=== PATIENT | male | born 1940 | race Caucasian/White ===

== ENCOUNTER → 2017-11-17 10:31 | Outpatient (CLI) | payer MEDICARE, OTHER, SELFPAY ==
--- NOTE | 2017-11-17 | DI.ECHO.S_ITS ---
[facility]---------+ [facility] +---------+ : : [address] [place] : : : : [id number] : : : : Phone: [phone]---------+ Echocardiogram Report + + :Name: TRUNG TINOCO Study Date: 11/17/2017 Height: 70 in : :[facility] Weight: 180 lb : : Gender: Male BSA: 2.0 m2 : :: 1940 Age: 77 yrs BP: 100/70 mmHg: :Reason For Study: Pulmonary - Hypertension : :Ordering Physician: Anthony : :Kayleigh Performed By: Rachel Collier : + + Interpretation Summary The left ventricle is borderline dilated. The ejection fraction is estimated to be 55-60%. There is a moderate dyssynchronous contraction pattern due to the paced rhythm. Paradoxical septal motion is consistent with right ventricular volume overload. Assessment of diastolic parameters indicates a relaxation abnormality of the left ventricle, consistent with normal filling pressures. The right ventricle is moderate to severely dilated. There is a pacemaker lead in the right ventricle. Right ventricular systolic function is moderate to severely reduced. The right atrium is moderate to severely dilated. The PFO is not appreciated by color Doppler on today's exam. There is a bioprosthetic aortic valve. The prosthetic aortic valve function is normal. There is moderate to severe tricuspid regurgitation. The right ventricular systolic pressure is estimated at 55 mmHg assuming a right atrial pressure of 15 mm Hg. The PAP is estimated at 55/25. The IVC is dilated (diameter is greater than 2.1 cm) and it collapses less than 50% with a sniff. This suggests a high right atrial pressure of 15 mm Hg. There is a moderate left-sided pleural effusion. No other echocardiographic abnormalities seen. Since the prior exam the RV size and function has significantly improved. The left pleural effusion is also much less. Procedure: A two-dimensional transthoracic echocardiogram with color flow and Doppler was performed. The study quality was technically adequate. Comparison is made with the echocardiogram of 09/28/2017. The patient was in normal sinus rhythm during the exam. Left Ventricle: The left ventricle is borderline dilated. Left ventricular wall thickness is borderline increased. Left ventricular systolic function is normal. The ejection fraction is estimated to be 55-60%. There is a moderate dyssynchronous contraction pattern due to the paced rhythm. Paradoxical septal motion is consistent with right ventricular volume overload. Assessment of diastolic parameters indicates a relaxation abnormality of the left ventricle, consistent with normal filling pressures. Right Ventricle: The right ventricle is moderate to severely dilated. There is a pacemaker lead in the right ventricle. Right ventricular systolic function is moderate to severely reduced. Atria: The left atrial size is normal. The right atrium is moderate to severely dilated. The PFO is not appreciated by color Doppler on today's exam. Mitral Valve: The mitral valve leaflets appear mildly thickened, but open well. There is mild mitral annular calcification. There is trace mitral regurgitation. 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 The prosthetic aortic valve is well-seated. The prosthetic aortic valve function is normal. No aortic regurgitation is present. Tricuspid Valve: The tricuspid valve leaflets are thin and pliable. There is moderate to severe tricuspid regurgitation. The right ventricular systolic pressure is estimated at 55 mmHg assuming a right atrial pressure of 15 mm Hg. Pulmonic Valve: There is mild to moderate pulmonic regurgitation. PAP estimated at 55/25. Great Vessels: The aortic root is normal size. The ascending aorta is mildly enlarged. The aortic arch is normal in size. Systolic flow reversal noted in the hepatic veins. The IVC is dilated (diameter is greater than 2.1 cm) and it collapses less than 50% with a sniff. This suggests a high right atrial pressure of 15 mm Hg. Pericardium/ Pleura There is no pericardial effusion. There is a moderate left-sided pleural effusion. MMode/2D Measurements & Calculations LVIDd: 5.8 cm LVOT diam: 2.1 cm LVIDs: 4.7 cm Ao root diam: 3.1 cm FS: 18.3 % asc Aorta Diam: 3.8 cm EPSS: 1.4 cm Ao Arch Diam (Prox Trans): 3.0 cm IVSd: 1.0 cm LVPWd: 0.92 cm LV key. diameter/BSA (cm/m^2): 2.9 LV sys. diameter/BSA (cm/m^2): 2.4 LA A2 area: 20.9 cm2 RA long axis: 6.8 cm LA A4 area: 23.1 cm2 RA area: 30.9 cm2 LA length (vol): 7.3 cm RA vol: 119.0 ml LA vol: 56.7 ml RA : 59.6 ml/m2 LA vol index: 28.4 ml/m2 IVC diam: 1.9 cm RVD1 (basal): 5.8 cm RVD2 (mid): 4.7 cm TAPSE: 1.5 cm Doppler Measurements & Calculations Ao V2 max: 218.4 cm/sec LVOT Max Timmy: 66.0 cm/sec Ao V2 mean: 142.7 cm/sec LV V1 max P.7 mmHg Ao max P.1 mmHg LV V1 VTI: 13.6 cm Ao mean P.3 mmHg GABRIELA(I,D): 1.2 cm2 Ao V2 VTI: 40.4 cm GABRIELA(V,D): 1.0 cm2 sev ratio: 0.34 GABRIELA indexed to BSA (cm^2/m^2): 0.58 MV E max tmimy: 53.3 cm/sec TR max timmy: 313.3 cm/sec MV A max timmy: 74.1 cm/sec TR max P.3 mmHg MV E/A: 0.72 PA V2 max: 67.0 cm/sec Med Peak E' Timmy: 3.5 cm/sec PA V2 mean: 44.7 cm/sec E/E' med: 15.2 PA mean P.91 mmHg Lat Peak E' Timmy: 7.2 cm/sec PA Accel Time: 0.09 sec E/E' lat: 7.4 E/e' average: 11.3 MV dec time: 0.26 sec MV P1/2t: 77.2 msec MV P1/2t max timmy: 53.0 cm/sec MVA(P1/2t): 2.9 cm2 Reading Physician:08:53 AM
== END ==
PROVIDERS: PCP Internal Medicine; Visit Provider Internal Medicine Cardiovascular Disease
DX: I27.20 Pulmonary hypertension, unspecified (principal); I07.1 Rheumatic tricuspid insufficiency; J90 Pleural effusion, not elsewhere classified; Z95.0 Presence of cardiac pacemaker
CPT/HCPCS: 93306

== ENCOUNTER → 2018-03-30 13:32 | Outpatient (CLI) | payer MEDICARE, OTHER, SELFPAY ==
--- NOTE | 2018-03-30 | DI.ECHO.S_ITS ---
[place]---------+ [facility] +---------+ : : [address] [place] : : : : [id number] : : : : Phone: [phone] +---------+ Echocardiogram Report + + :Name: TRUNG TINOCO Study Date: 03/30/2018 Height: 70 in : :[facility] Weight: 189 lb: : Gender: Male BSA: 2.0 m2 : :: 1940 Age: 77 yrs : :Reason For Study: HEART FAILURE : :Ordering Physician: Anthony : :Kayleigh Performed By: Ceci Riojas : :Referring: ANTHONY ANGUIANO : + + Interpretation Summary The left ventricle is normal in size. The ejection fraction is estimated to be 55-60%. There is a mild dyssynchronous contraction pattern due to the paced rhythm. Flattened septum is consistent with RV volume overload. Diastolic parameters suggest a relaxation abnormality of the left ventricle, consistent with probable normal filling pressures. The right ventricle is severely dilated. Right ventricular systolic function is moderately reduced. The right ventricular systolic pressure is estimated to be at least 47 mmHg based on an estimated right atrial pressure of 15 mm Hg. There is a pacemaker lead in the right ventricle. There is a PFO closure device present. There is a bioprosthetic aortic valve. There is normal prosthetic aortic valve function. No other echocardiographic abnormalities seen. Compared with the prior examination from November 2017 the atrial septal occluder device is present. Right ventricular systolic function looks very slightly improved and the paradoxical septal motion noted in November is reduced. In addition pulmonary artery pressure is moderately decreased. Procedure: A two-dimensional transthoracic echocardiogram with color flow and Doppler was performed. The study quality was technically adequate. Comparison is made with the echocardiogram of 11/17/2017. The heart rate ranged between 60-85 bpm during the study. Left Ventricle: There is normal left ventricular wall thickness. The left ventricle is normal in size. The ejection fraction is estimated to be 55-60%. There is a mild dyssynchronous contraction pattern due to the paced rhythm. Flattened septum is consistent with RV volume overload. Diastolic parameters suggest a relaxation abnormality of the left ventricle, consistent with probable normal filling pressures. Right Ventricle: The right ventricle is severely dilated. There is a pacemaker lead in the right ventricle. Right ventricular systolic function is moderately reduced. Atria: The left atrium is mildly dilated. The right atrium is moderate to severely dilated. There is a PFO closure device present. Mitral Valve: The mitral valve leaflets appear mildly thickened, but open well. There is trace mitral regurgitation. 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 The prosthetic aortic valve is well-seated. The prosthetic aortic valve appears to open well. There is probable normal prosthetic aortic valve function. There is no aortic valve stenosis. The peak aortic velocity is 1.8 m/sec. The peak aortic velocity on the previous exam was 2.2 m/sec. The aortic valve mean gradient is 8 mmHg. No aortic regurgitation is present. Tricuspid Valve: The tricuspid valve leaflets are thin and pliable. The right ventricular systolic pressure is estimated to be at least 47 mmHg based on an estimated right atrial pressure of 15 mm Hg. There is moderate tricuspid regurgitation. Pulmonic Valve: The pulmonic valve leaflets are thin and pliable; valve motion is normal. There is moderate pulmonic regurgitation. Great Vessels: The aortic root is normal size. The ascending aorta is mildly enlarged. The aortic arch is at the upper limits of normal in size. The IVC is dilated (diameter is greater than 2.1 cm) and it collapses less than 50% with a sniff. This suggests a high right atrial pressure of 15 mm Hg. Pericardium/ Pleura There is no pericardial effusion. There is a small right-sided pleural effusion. MMode/2D Measurements & Calculations LVIDd: 5.9 cm LVOT diam: 2.0 cm LVIDs: 5.0 cm asc Aorta Diam: 3.8 cm FS: 15.1 % Ao Arch Diam (Prox Trans): 3.0 cm IVSd: 0.79 cm LVPWd: 0.78 cm LV key. diameter/BSA (cm/m^2): 2.9 LV sys. diameter/BSA (cm/m^2): 2.5 LA A2 area: 23.8 cm2 RA long axis: 6.8 cm LA A4 area: 22.1 cm2 RA area: 35.7 cm2 LA length (vol): 7.4 cm RA vol: 158.8 ml LA vol: 60.2 ml RA : 77.9 ml/m2 LA vol index: 29.5 ml/m2 IVC diam: 2.8 cm RVD1 (basal): 6.0 cm Doppler Measurements & Calculations Ao V2 max: 180.2 cm/sec LVOT Max Timmy: 52.2 cm/sec Ao V2 mean: 139.2 cm/sec LV V1 max P.1 mmHg Ao max P.0 mmHg LV V1 VTI: 9.7 cm Ao mean P.2 mmHg GABRIELA(I,D): 0.85 cm2 Ao V2 VTI: 34.7 cm GABRIELA(V,D): 0.87 cm2 sev ratio: 0.28 GABRIELA indexed to BSA (cm^2/m^2): 0.42 MV E max timmy: 40.9 cm/sec TR max timmy: 280.7 cm/sec MV A max timmy: 70.0 cm/sec TR max P.6 mmHg MV E/A: 0.58 MV dec time: 0.26 sec Reading Physician:10:38 AM
== END ==
PROVIDERS: PCP Internal Medicine; Visit Provider Internal Medicine Cardiovascular Disease
DX: I50.9 Heart failure, unspecified (principal)
CPT/HCPCS: 93306

== ENCOUNTER → 2018-03-31 12:45 | Outpatient (CLI) | payer MEDICARE, OTHER, SELFPAY ==
--- NOTE | 2018-03-31 | DI.RAD.S_ITS ---
PROCEDURE: XR CHEST 2V INDICATIONS: Atrial septal defect TECHNIQUE: 2 views of the chest were acquired. COMPARISON: [facility], CR, XR CHEST 1 VIEW, 06/17/2017, 10:49. [facility], CR, CHEST 2 VIEW, 11/06/2016, 10:43. FINDINGS: Surgical changes and devices: Cardiac AICD. Sternotomy wires and cardiac valvular prosthesis in the. Lungs and pleura: No pleural effusions or pneumothorax. No acute consolidation. There is scattered subsegmental atelectasis and/or scarring . Mediastinum: Mediastinal contours are normal. Heart size is normal. Bones and chest wall: No suspicious bony abnormalities. Soft tissues appear unremarkable. IMPRESSION: No acute disease. Diffuse scarring/atelectasis Dictated by: Richard Harvey M.D. on 03/31/2018 at 15:15 Approved by: Richard Harvey M.D. on 03/31/2018 at 15:18
== END ==
PROVIDERS: PCP Internal Medicine; Visit Provider Internal Medicine Cardiovascular Disease
DX: Q21.1 Atrial septal defect (principal); J98.4 Other disorders of lung
CPT/HCPCS: 71046

== ENCOUNTER 2018-04-02 08:36 | Emergency (ER) | payer MEDICARE, OTHER, SELFPAY ==
--- NOTE | 2018-04-02 08:38 | ED_ITS ---
HPI - Male Genitourinary General Chief complaint: Urogenital-Male Stated complaint: URINATING BLOOD Time Seen by Provider: 04/02/18 08:38 Source: patient Mode of arrival: ambulatory Limitations: no limitations History of Present Illness HPI Narrative: 77-year-old male here for evaluation of painless blood in his urine. Patient states that it started sometime yesterday but was only at the very end of urination. This morning he woke up and it was throughout his entire urination. He states that is painless. He is on Coumadin for cardiac reasons. His last INR was taken several weeks ago and was less than 2. He has never had a kidney stone before. He states that he does have urinary frequency but he is also on a ?water pill ?he does state that maybe over the past couple days he feels like he is not emptying his bladder completely blood sugar this is new or not. Related Data Home Medications Medication Instructions Recorded Confirmed atorvastatin [Lipitor] 5 mg PO QDAY #0 03/16/17 budesonide-formoterol [Symbicort] 2 inh INH BID #0 03/16/17 carisoprodol 350 mg PO QDAYP PRN #0 03/16/17 glimepiride [Amaryl] 4 mg PO BIDCC #0 03/16/17 lisinopril 10 mg PO QDAY #0 03/16/17 magnesium oxide 250 mg PO QDAY #0 03/16/17 multivitamin [Multiple Vitamins] 1 tab PO QDAY #0 03/16/17 sotalol 80 mg PO BID #0 03/16/17 torsemide 5 mg PO QDAY #0 03/16/17 triamcinolone acetonide 0 gm TOPICAL BID PRN #0 03/16/17 Allergies Allergy/AdvReac Type Severity Reaction Status Date / Time shellfish derived Allergy Severe SWELLS UP Unverified 09/22/17 12:08 [SHELLFISH DERIVED] Review of Systems Constitutional Denies fever(s) Gastrointestinal Gastrointestinal: Denies abdominal pain, Denies nausea and Denies vomiting Genitourinary Reports hematuria, Denies difficulty urinating, Denies dysuria, Denies flank pain, Denies testicular pain, Reports urinary frequency, Denies urinary hesitancy, Denies urinary incontinence and Denies urinary urgency Musculoskeletal Denies myalgias and Denies arthralgias Integumentary/Breasts Denies lesions and Denies rash Hematologic/Lymphatic Reports easy bleeding (On Coumadin) PFSH Medical History Coronary artery disease (Acute) Diabetes (Acute) Hypertension (Acute) Surgical History S/P patent foramen ovale closure (Acute) Exam Initial Vital Signs Initial Vital Signs: Vital Signs Pulse Rate 67 04/02/18 08:48 Respiratory Rate 13 04/02/18 08:48 Blood Pressure 96/66 04/02/18 08:48 Pulse Oximetry 92 04/02/18 08:48 Const General: cooperative, comfortable, well developed, well groomed and No acute distress Orientation: alert, awake and oriented x3 Resp Effort & Inspection: normal respiratory effort Auscultation: clear to auscultation bilaterally Cardio Rate: regular rate Pulses: radial pulses present GI Palpation: soft and No tender Back/Spine/Pelvis Back: No CVA tenderness Skin Lesions: no lesions Rashes: no rashes Neuro General: alert, awake and oriented x3 Extrem General: normal to inspection and capillary refill normal Psych Appearance: grossly normal and well kempt Course Orders Ordered: ED Orders 04/02/18 08:55 Urinalysis and Microscopic Stat 04/02/18 09:20 Prothrombin Time INR Stat Vital Signs - 8 hr 04/02/18 08:48 04/02/18 08:57 Pulse Rate 67 67 Respiratory Rate 13 13 Blood Pressure 96/66 96/66 Pulse Oximetry 92 92 MDM - Male Genitourinary Lab Data Attestation: I reviewed the patient's lab results. Lab Results 04/02/18 04/02/18 Range/Units 08:55 09:20 PT 25.3 H (10.1-12.7) SECONDS INR 2.3 H (0.9-1.3) Urine Color Red Urine Appearance Clear Urine pH 6.5 (4.5-8.0) Ur Specific [place] <=1.005 (1.000-1.035) Urine Protein Trace H (Negative) Urine Glucose (UA) Negative (Normal) g/dL Urine Ketones Negative (NEGATIVE) Urine Occult Blood 3+ H (Negative) Urine Nitrate Negative (Negative) Urine Bilirubin Negative (NEGATIVE) Urine Urobilinogen 0.2 (0.2) E.U./dL Ur Leukocyte Esterase Trace H (NEGATIVE) Urine RBC 30-100/hpf H (0-5/HPF) Urine WBC None seen (0-5/HPF) Urine Bacteria None seen (None) Ur Culture Indicated? Cult not indicated Micro UA Comment Not Reportable MDM Narrative Medical decision making narrative: Patient's urinalysis today is not consistent with a urinary tract infection. A bladder scan does show greater than 400 cc postvoid residual. I had a long discussion with the patient and his regarding this. I did state that it was my recommendation that we place a Almendarez and keep the Almendarez in. After this long discussion they decided just to do a straight cath here in the emergency department acknowledging the fact that he could again retained urine and have to come back to the emergency department. The in and out catheterization returned 500 cc of urine which was clear. I have low concern for kidney stones. His INR is 2.3. We did discuss the importance of them following up with her primary care doctor and also urologist. They do have an appointment with a ?kidney doctor ?at the end of this month. They are given return precautions. They expressed understanding and agreement with plan. Discharge Plan Departure Patient Disposition: Home Clinical Impression: Hematuria, Acute urinary retention Instructions: DI for Hematuria, DI for Urinary Retention in Men Activity Restrictions/Additional Instructions: Continue all of your medications as directed. Make sure your drinking plenty of fluids. If you have increasing pain or problems urinating return to the emergency department. Call your primary care doctor for a follow-up to discuss the indications for referral to see Urology. Prescriptions: No Action torsemide 5 MG tablet 5 mg PO QDAY Qty: 0 RF: 0 carisoprodol 350 MG tablet 350 mg PO QDAYP PRNQty: 0 RF: 0 atorvastatin [Lipitor] 10 MG tablet 5 mg PO QDAY Qty: 0 RF: 0 lisinopril 10 MG tablet 10 mg PO QDAY Qty: 0 RF: 0 sotalol 80 MG tablet 80 mg PO BID Qty: 0 RF: 0 glimepiride [Amaryl] 4 MG tablet 4 mg PO BIDCC Qty: 0 RF: 0 magnesium oxide 250 MG tablet 250 mg PO QDAY Qty: 0 RF: 0 multivitamin [Multiple Vitamins] 1 EACH tablet 1 tab PO QDAY Qty: 0 RF: 0 triamcinolone acetonide 0.1 % ointment Topical BID PRNQty: 0 RF: 0 budesonide-formoterol [Symbicort] 80 MCG/4.5 MCG HFA aerosol inhaler 2 inh INH BID Qty: 0 RF: 0
[2018-04-02 08:48] VITALS: BP 96/66; PULSE 67; RESP 13; O2SAT 92
[2018-04-02 08:57] VITALS: BP 96/66; PULSE 67; RESP 13; O2SAT 92
[2018-04-02 09:07] LABS: Bacteria Urine None Seen; WBC Urine None Seen (0-5/HPF)
[2018-04-02 09:08] LABS: Appearance Urine UA CLEAR; Bilirubin Urine UA NEGATIVE (NEGATIVE); Color Urine UA RED; Glucose Urine UA NEGATIVE (Normal); Ketones Urine UA NEGATIVE (NEGATIVE); Leukocyte Esterase Urine UA TRACE (NEGATIVE); Nitrite Urine UA NEGATIVE (Negative); Occult Blood Urine UA 3+ (Negative); Protein Urine UA TRACE (Negative); Specific Gravity Urine UA <=1.005 (1.000-1.035); Urobilinogen Urine UA 0.2 E.U./dL (0.2); pH Urine UA 6.5 (4.5-8.0)
[2018-04-02 09:13] LABS: Culture Indicated Urine Cult Not Indicated; RBC Urine 30-100/HPF (0-5/HPF)
[2018-04-02 09:33] LABS: INR 2.3 (0.9-1.3); Prothrombin Time 25.3 SECONDS (10.1-12.7)
[2018-04-02 11:10] VITALS: BP 112/87; PULSE 60; RESP 19; O2SAT 92
== END 2018-04-02 10:45 | disposition home or self-care (01) ==
PROVIDERS: Emergency Provider Emergency Medicine; PCP Internal Medicine
DX: R31.9 Hematuria, unspecified (principal); R33.9 Retention of urine, unspecified
CPT/HCPCS: 36415; 51798; 81001; 85610; 99283

== ENCOUNTER 2018-04-09 08:12 | Emergency (ER) | payer MEDICARE, OTHER, SELFPAY ==
[2018-04-09] VITALS (7 sets, daily range): BP systolic 90–127; BP diastolic 51–73; PULSE 69–82; RESP 14–20; TEMP 36.2; O2SAT 92–100; BMI 26.6
--- NOTE | 2018-04-09 08:26 | ED.GENADULT ---
HPI - General Adult General Chief complaint: Diabetic Problem Stated complaint: Low Blood Glucose Time Seen by Provider: 04/09/18 08:15 Source: patient, EMS and old records reviewed Mode of arrival: ambulatory History of Present Illness HPI narrative: This is a 77-year-old male comes to the emergency department with complaint of dizziness. He was seen by EMS and noted to have hypoglycemia. He was given D50 in the field. Patient states that after the medication he felt a lot better. He states he woke up this morning felt really dizzy when his tried to get him up and move him out of bed. He stated lying in bed felt fine. He denies any headache, he denies any chest pain, shortness of breath, no abdominal pain. He denies any nausea or vomiting. He denies any diarrhea or constipation. He denies any trouble with urination although he has been peeing more frequently. His abdomen is distended and when asked he states that it has been a problem for a while. Patient has not had fevers he is aware of. He is a somewhat poor historian and denies any medical problems but has pacemaker and an obvious incision in the anterior chest. Patient states he does have a history of diabetes. Was on metformin they have been transitioning him on to insulin. He states that he has only been using a little bit occasionally but has been using regularly the last 2 days. Related Data Home Medications Medication Instructions Recorded Confirmed atorvastatin [Lipitor] 5 mg PO QDAY #0 03/16/17 budesonide-formoterol [Symbicort] 2 inh INH BID #0 03/16/17 carisoprodol 350 mg PO QDAYP PRN #0 03/16/17 glimepiride [Amaryl] 4 mg PO BIDCC #0 03/16/17 lisinopril 10 mg PO QDAY #0 03/16/17 magnesium oxide 250 mg PO QDAY #0 03/16/17 multivitamin [Multiple Vitamins] 1 tab PO QDAY #0 03/16/17 sotalol 80 mg PO BID #0 03/16/17 torsemide 5 mg PO QDAY #0 03/16/17 triamcinolone acetonide 0 gm TOPICAL BID PRN #0 03/16/17 Allergies Allergy/AdvReac Type Severity Reaction Status Date / Time shellfish derived Allergy Severe SWELLS UP Unverified 09/22/17 12:08 [SHELLFISH DERIVED] Review of Systems Review of Systems All systems reviewed & are unremarkable except as noted in HPI and below Constitutional Denies body ache(s), Denies fever(s), Reports malaise, Denies weakness and Reports other (Sweaty when he eats) ENT Ears, Nose, Mouth, and Throat: Reports dizziness Cardiovascular Denies chest pain, Denies syncope, Denies edema, Denies irregular heart rhythm, Denies lightheadedness, Denies palpitations, Denies dyspnea, Denies dyspnea on exertion and Denies orthopnea Respiratory Denies chest congestion, Denies cough, Denies dyspnea and Denies dyspnea on exertion Gastrointestinal Gastrointestinal: Denies abdominal pain, Denies change in bowel habits, Denies constipation, Denies diarrhea, Denies nausea and Denies vomiting Genitourinary Denies hematuria, Denies flank pain, Reports urinary frequency (On a diuretic), Denies urinary incontinence and Denies urinary urgency Musculoskeletal Denies back pain, Denies numbness and Denies tingling Neurologic Reports dizziness, Denies syncope, Denies focal weakness, Denies numbness, Denies tingling and Denies weakness Endocrine Denies palpitations PFSH Medical History Coronary artery disease (Acute) Diabetes (Acute) Diabetes (Acute) Hypertension (Acute) Pacemaker (Acute) Surgical History S/P patent foramen ovale closure (Acute) Social History Smoking Status: Former smoker Exam Narrative Exam Narrative: GEN: well nourished, well appearing elderly male, alert and oriented x 3, patient appears to be in mild distress. HEENT: Atraumatic, pupils are equal round reactive to light, extraocular movements are intact, nares are clear, TMs are clear with no fluid, there is no conjunctival pallor. Throat is clear without any exudates, erythema, tonsillar enlargement or uvular deviation HEART: Regular rate and rhythm without murmur, clicks, rubs. Pulses are equal in upper and lower extremities LUNGS:Lungs clear to auscultation, no wheezes, rales, crackles, chest moves symmetrically ABD:bowel sounds normal, soft, non-tender, no guarding, rebound, rigidity, no masses noted, no hepatosplenomegaly, patient is distended. No keep noted. :No CVA tenderness MSCL: Non-tender, no muscle atrophy, muscles strength 5/5 upper and lower extremities, full range of motion NEURO:CN 2-12 intact, sensation normal Initial Vital Signs Initial Vital Signs: Vital Signs Temperature 97.2 F L 04/09/18 08:10 Pulse Rate 82 04/09/18 08:10 Respiratory Rate 16 04/09/18 08:10 Blood Pressure 127/73 04/09/18 08:10 Pulse Oximetry 92 04/09/18 08:10 Scores GCS Radha coma scale eye opening: Spontaneous Radha coma scale verbal response: Orientated [place] coma scale motor response: Obey commands [place] coma scale total score: 15 Course Orders Ordered: ED Orders 04/09/18 10:40 EKG-12 Lead Stat 04/09/18 10:50 Troponin I Stat Vital Signs - 8 hr 04/09/18 12:00 04/09/18 12:42 Pulse Rate 73 77 Respiratory Rate 15 17 Blood Pressure 106/71 Blood Pressure [Left Arm] 109/66 Pulse Oximetry 96 97 Medical Decision Making Lab Data Result diagrams: 04/09/18 08:45 04/09/18 08:45 Lab Results 04/09/18 04/09/18 04/09/18 Range/Units 08:45 08:45 08:45 WBC 9.0 (4.5-11.0) X10^3/uL RBC 4.61 (4.5-5.9) X10^6/uL Hgb 12.9 L (13.5-17.5) g/dL Hct 38.9 L (41-53) % MCV 84.3 (80-100) fL MCH 27.9 (26-34) PG MCHC 33.1 (30-36) % RDW 16.6 H (11.6-14.8) % Plt Count 133 L (150-400) X10^3/uL Neut % (Auto) 79.4 H (50-75) % Lymph % (Auto) 5.1 L (25-40) % [place] % (Auto) 13.1 (3-14) % Eos % (Auto) 1.8 L (2-4) % Baso % (Auto) 0.6 (0-2) % Neut # (Auto) 7200 H (5353-2711) /uL PT 18.6 H D (10.1-12.7) SECONDS INR 1.7 H (0.9-1.3) APTT 31 (26.4-36.2) SECONDS Sodium 131 L (137-145) mmol/L Potassium 3.7 (3.4-5.1) mmol/L Chloride 82 L (98-107) mmol/L Carbon Dioxide 32 (22-32) mmol/L BUN 81 H (9-20) mg/dL Creatinine 1.70 H (0.66-1.25) mg/dL Estimated GFR 39.3 L (>60) mL/min BUN/Creatinine Ratio 47.6 H (6-22) Glucose 96 (80-110) mg/dL Calcium 9.2 (8.4-10.2) mg/dL Total Bilirubin 1.5 H (0.2-1.3) mg/dL AST 30 (17-59) IU/L ALT 31 (21-72) IU/L Alkaline Phosphatase 145 H (38-126) U/L Ammonia (9-30) umol/L Troponin I 0.014 (0.01-0.034) ng/mL Total Protein 7.5 (6.3-8.2) g/dL Albumin 4.3 (3.5-5.0) g/dL Globulin 3.2 (1.7-4.1) g/dL Albumin/Globulin Ratio 1.3 (1.0-2.8) Urine Color Urine Appearance Urine pH Ur Specific [place] Urine Protein Urine Glucose (UA) Urine Ketones Urine Occult Blood Urine Nitrate Urine Bilirubin Urine Urobilinogen Ur Leukocyte Esterase 04/09/18 04/09/18 04/09/18 Range/Units 08:45 09:41 10:50 WBC (4.5-11.0) X10^3/uL RBC (4.5-5.9) X10^6/uL Hgb (13.5-17.5) g/dL Hct (41-53) % MCV (80-100) fL MCH (26-34) PG MCHC (30-36) % RDW (11.6-14.8) % Plt Count (150-400) X10^3/uL Neut % (Auto) (50-75) % Lymph % (Auto) (25-40) % [place] % (Auto) (3-14) % Eos % (Auto) (2-4) % Baso % (Auto) (0-2) % Neut # (Auto) (6925-9136) /uL PT (10.1-12.7) SECONDS INR (0.9-1.3) APTT (26.4-36.2) SECONDS Sodium (137-145) mmol/L Potassium (3.4-5.1) mmol/L Chloride (98-107) mmol/L Carbon Dioxide (22-32) mmol/L BUN (9-20) mg/dL Creatinine (0.66-1.25) mg/dL Estimated GFR (>60) mL/min BUN/Creatinine Ratio (6-22) Glucose (80-110) mg/dL Calcium (8.4-10.2) mg/dL Total Bilirubin (0.2-1.3) mg/dL AST (17-59) IU/L ALT (21-72) IU/L Alkaline Phosphatase (38-126) U/L Ammonia < 9.0 L (9-30) umol/L Troponin I 0.013 (0.01-0.034) ng/mL Total Protein (6.3-8.2) g/dL Albumin (3.5-5.0) g/dL Globulin (1.7-4.1) g/dL Albumin/Globulin Ratio (1.0-2.8) Urine Color Cancelled Urine Appearance Cancelled Urine pH Cancelled Ur Specific [place] Cancelled Urine Protein Cancelled Urine Glucose (UA) Cancelled Urine Ketones Cancelled Urine Occult Blood Cancelled Urine Nitrate Cancelled Urine Bilirubin Cancelled Urine Urobilinogen Cancelled Ur Leukocyte Esterase Cancelled Point of Care Testing Glucose POC 132 Urine Dip Bedside Urine Glucose Negative Bedside Urine Bilirubin - Negative Bedside Urine Ketone - Negative Urine Specific [place] 1.015 Bedside Urine Occult Blood - Negative Bedside Urine pH 6.5 Bedside Urine Protein - Negative Bedside Urine Urobilinogen - Negative Bedside Urine Nitrite - Negative Bedside Urine Leukocytes - Negative Esterase Point of care testing: Point of Care Testing Glucose POC 132 Urine Dip Bedside Urine Glucose Negative Bedside Urine Bilirubin - Negative Bedside Urine Ketone - Negative Urine Specific [place] 1.015 Bedside Urine Occult Blood - Negative Bedside Urine pH 6.5 Bedside Urine Protein - Negative Bedside Urine Urobilinogen - Negative Bedside Urine Nitrite - Negative Bedside Urine Leukocytes - Negative Esterase Imaging Data Chest x-ray: Radiologist's impression: [address] [address] XRay Report Signed Patient: Kenneth Curiel BMR#: [id number] : 1Acct:[id number] Age/Sex: 77 / MDate of Service: 04/09/18 Loc: ED Accession Number: [id number] Procedure: XR chest 1V Ordering Provider: Chapis Morales D.O. PROCEDURE: XR CHEST 1V INDICATIONS: dizzy, hypoglycemia TECHNIQUE: One view of the chest was acquired. COMPARISON: [facility], CR, XR CHEST 2V, 03/31/2018, 12:38. [facility], CR, CHEST 2 VIEW, 11/06/2016, 10:43. FINDINGS: Surgical changes and devices: Stable over time. Lungs and pleura: No pleural effusions or pneumothorax. Lungs are mildly edematous. Mediastinum: Mediastinal contours appear normal. Heart size is normal. Bones and chest wall: No suspicious bony lesions. Overlying soft tissues appear unremarkable. IMPRESSION: Mild acute CHF is suspected given the mild edema pattern when compared to the appearance of the lung parenchyma in October of last year. Postsurgical changes are stable over time. Dictated by: Anthony Toscano M.D. on 04/09/2018 at 9:21 Approved by: Anthony Toscano M.D. on 04/09/2018 at 9:21 ECG Data Attestation: I personally reviewed and interpreted this ECG as follows: Prior ECG tracings: available for review Interpretation: EKG shows atrial paced rhythm with a rate of 67 P are 277 [place] 136 and QTC of 434. ST depression in 1 and aVL. Patient is intermittently paced. Comparison EKG from 03/16/2017 shows atrial fibrillation but does not show a paced rhythm does not appear similar to today's EKG. MDM Narrative Medical decision making narrative: patient has recent hospitalization for CHF as well as symptomatic hematuria after a [facility] catheterization. Patient's hemoglobin appears stable it was 11.9 on 04/03 at [facility] is 12.9 today. His sodium was 126 at discharge and is in the low 130 range here. His INR was 1.8 on the . Chest x-ray shows some mild pulmonary edema but patient otherwise does not look particularly fluid overloaded. His EKG shows a atrial paced rhythm. Patient's urine shows After discussion with his had a lot of issues with his blood sugars bouncing around. She suspects that the last package of insulin may have not been quite as strong although it was not Um they just started a new pack it today and it seemed to drop his blood sugar quite quickly. She had given him a dose of the NovoLog this morning and then his sugars dropped afterwards. He has been using insulin for about 3 weeks under his 's guidance. Discussed with Um did a repeat troponin as well as EKG. I suspect patient's symptoms were all related to his hypoglycemia. Patient and her are comfortable returning home and he is asymptomatic currently. Planned to start patient any much lower NovoLog dose and we discussed starting with 1 unit post meals for his sliding scale. To monitor for several days using these numbers and then may adjust by an additional unit at a time. They also have follow-up with primary care in the next week and they can help continue to guide their insulin use. Discharge Plan Departure Patient Disposition: Home Clinical Impression: Hypoglycemia Discharge Date/Time: 04/09/18 12:43 Interventions: ED Discharge Assessment Last Done: 04/09/18 12:42 Instructions: DI for Hypoglycemia Activity Restrictions/Additional Instructions: Follow-up with your primary care physician at your scheduled appointment this week. Return to the emergency department for any recurrent symptoms, hypoglycemia that does not resolve with juice or food, altered mental status, chest pain or shortness of breath, persistent vomiting, passing out or other new or concerning symptoms. You may continue your Lantus dose as scheduled. I recommend that you stop your current NovoLog dosage. Start at 1 unit immediately after meals depending on the sliding scale that you have been given. Document your sugars with this if the patient needs additional NovoLog with the next meal Um depending on the sliding scale you may start 2 units. If blood sugar is less than 120 do not give any insulin. Prescriptions: No Action torsemide 5 MG tablet 5 mg PO QDAY Qty: 0 RF: 0 carisoprodol 350 MG tablet 350 mg PO QDAYP PRNQty: 0 RF: 0 atorvastatin [Lipitor] 10 MG tablet 5 mg PO QDAY Qty: 0 RF: 0 lisinopril 10 MG tablet 10 mg PO QDAY Qty: 0 RF: 0 sotalol 80 MG tablet 80 mg PO BID Qty: 0 RF: 0 glimepiride [Amaryl] 4 MG tablet 4 mg PO BIDCC Qty: 0 RF: 0 magnesium oxide 250 MG tablet 250 mg PO QDAY Qty: 0 RF: 0 multivitamin [Multiple Vitamins] 1 EACH tablet 1 tab PO QDAY Qty: 0 RF: 0 triamcinolone acetonide 0.1 % ointment Topical BID PRNQty: 0 RF: 0 budesonide-formoterol [Symbicort] 80 MCG/4.5 MCG HFA aerosol inhaler 2 inh INH BID Qty: 0 RF: 0
--- NOTE | 2018-04-09 08:49 | PC.NURSE ---
Pt appears a/o but denies any heart or liver problems but has a large acities abd and pacemaker and cabg scar. Confusion is certain but unclear if his norm as not here as of this note. Recent admission at [facility] and we are asking for records
[2018-04-09 08:51] LABS: Add Manual Diff / Slide Review NO; Basophils Percent Auto 0.6 % (0-2); Eosinophils Percent Auto 1.8 % (2-4); Hematocrit 38.9 % (41-53); Hemoglobin 12.9 g/dL (13.5-17.5); Lymphocytes Percent Auto 5.1 % (25-40); Mean Corpuscular HGB Conc 33.1 % (30-36); Mean Corpuscular Hemoglobin 27.9 PG (26-34); Mean Corpuscular Volume 84.3 fL (80-100); Monocytes Percent Auto 13.1 % (3-14); Neutrophils Absolute Auto 7200 /uL (3000-5900); Neutrophils Percent Auto 79.4 % (50-75); Platelet Count 133 X10^3/uL (150-400); Red Blood Cell Count 4.61 X10^6/uL (4.5-5.9); Red Cell Distribution Width 16.6 % (11.6-14.8)
[2018-04-09 08:56] LABS: INR 1.7 (0.9-1.3); Prothrombin Time 18.6 SECONDS (10.1-12.7)
[2018-04-09 08:59] LABS: PTT Partial Thromboplastin Tim 31 SECONDS (26.4-36.2)
[2018-04-09 09:00] LABS: Ammonia (NH3) < 9.0 umol/L (9-30)
[2018-04-09 09:01] LABS: Alanine Aminotransferase 31 IU/L (21-72); Albumin 4.3 g/dL (3.5-5.0); Albumin Globulin Ratio 1.3 (1.0-2.8); Alkaline Phosphatase 145 U/L (38-126); Aspartate Aminotransferase 30 IU/L (17-59); BUN Creatinine Ratio 47.6 (6-22); Bilirubin Total 1.5 mg/dL (0.2-1.3); Blood Urea Nitrogen 81 mg/dL (9-20); Calcium 9.2 mg/dL (8.4-10.2); Carbon Dioxide 32 mmol/L (22-32); Chloride 82 mmol/L (98-107); Estimated Glomerular Filt Rate 39.3 mL/min (>60); Globulin 3.2 g/dL (1.7-4.1); Glucose 96 mg/dL (80-110); HEMOLYSIS < 15 (0-50); Potassium 3.7 mmol/L (3.4-5.1); Sodium 131 mmol/L (137-145); Total Protein 7.5 g/dL (6.3-8.2)
[2018-04-09 09:12] LABS: Troponin I 0.014 ng/mL (0.01-0.034)
--- NOTE | 2018-04-09 10:25 | PC.NURSE ---
Food provided and taking own meds per MD RILEY
[2018-04-09 11:21] LABS: Troponin I 0.013 ng/mL (0.01-0.034)
== END 2018-04-09 12:43 | disposition home or self-care (01) ==
PROVIDERS: Emergency Provider Emergency Medicine; PCP Internal Medicine
DX: E11.649 Type 2 diabetes mellitus with hypoglycemia without coma (principal); R42 Dizziness and giddiness
CPT/HCPCS: 36415; 71045; 80053; 81003; 82140; 82962; 84484; 85025; 85610; 85730; 93005; 93010; 93041; 99285

== ENCOUNTER → 2018-05-30 09:45 | Outpatient (CLI) | payer MEDICARE, OTHER, SELFPAY ==
--- NOTE | 2018-05-30 | DI.MG.S_ITS ---
MALE BILATERAL DIGITAL DIAGNOSTIC MAMMOGRAM 3D/2D: 05/30/2018 CLINICAL: Baseline exam. Bilateral breast pain and mass. No prior exams were available for comparison. There are triangular markers overlying the skin of the superior breasts bilaterally adjacent the nipples at the site of the patient's reported bilateral painful breast masses. There is dense retroareolar fibroglandular tissue bilaterally. Left upper chest pacemaker device results in imaging artifact that obscures underlying anatomy. No other significant masses, calcifications, or other findings are seen in either breast. IMPRESSION: INCOMPLETE: NEEDS ADDITIONAL IMAGING EVALUATION Dense retroareolar fibroglandular tissue bilaterally, consistent with gynecomastia. Targeted diagnostic ultrasound recommended for further evaluation, which will be performed immediately following this exam. This exam was interpreted at Station ID: [id number]. NOTE: For mammograms, a report in lay terms will be sent to the patient. Approximately 15% of breast malignancies will not be visualized mammographically. In the management of a palpable breast mass, a negative mammogram must not discourage biopsy of a clinically suspicious lesion. Electronically Signed By: Richard Can M.D. ecl/:05/30/2018 10:52:37 letter sent: Additional Imaging Needed ACR BI-RADS Category 0: Incomplete [id number]
--- NOTE | 2018-05-30 | DI.US.S_ITS ---
LIMITED ULTRASOUND OF RIGHT BREAST: 05/30/2018 CLINICAL: Mastodynia. Comparison is made to exam dated: 05/30/2018 [facility]. Real-time and Doppler ultrasound of the right breast retroareolar were performed. Valero scale images of the real-time examination were reviewed. Targeted ultrasound was performed in the region of the patient's reported focal painful and plapable abnormality in the retroareolar region. There is retroareolar fibroglandular tissue/gynecomastia with indistinct retroareolar fluid. There is no internal vascularity on Doppler ultrasound. IMPRESSION: BENIGN 1) Targeted ultrasound demonstrates right retroareolar fibroglandular tissue/gynecomastia with indistinct right retroareolar fluid. Recommend clinical follow-up for further evaluation and management of the patient's reported symptoms. 2) There is no sonographic evidence of malignancy in the imaged portions of the right breast. The patient is advised to monitor his chest and to return for re-evaluation should he feel anything grow or change. This exam was interpreted at Station ID: [id number]. Electronically Signed By: Richard Can M.D. ecl/:05/31/2018 09:13:19 letter sent: Clinical Evaluation Ultrasound BI-RADS: 2 Benign
--- NOTE | 2018-05-30 | DI.US.S_ITS ---
LIMITED ULTRASOUND OF LEFT BREAST: 05/30/2018 CLINICAL: Mastodynia. Comparison is made to exam dated: 05/30/2018 [facility]. Real-time and Doppler ultrasound of the left breast retroareolar were performed. Valero scale images of the real-time examination were reviewed. Targeted ultrasound was performed in the region of the patient's reported focal painful and plapable abnormality in the retroareolar region. There is retroareolar fibroglandular tissue/gynecomastia with indistinct retroareolar fluid. There is no internal vascularity on Doppler ultrasound. IMPRESSION: BENIGN 1) Targeted ultrasound demonstrates left retroareolar fibroglandular tissue/gynecomastia with indistinct left retroareolar fluid. Recommend clinical follow-up for further evaluation and management of the patient's reported symptoms. 2) There is no sonographic evidence of malignancy in the imaged poritons of the left breast. The patient is advised to monitor his chest and to return for re-evaluation should she feel anything grow or change. This exam was interpreted at Station ID: [id number]. Electronically Signed By: Richard Can M.D. ecl/:05/30/2018 13:05:19 letter sent: Clinical Evaluation Ultrasound BI-RADS: 2 Benign
== END ==
PROVIDERS: PCP Internal Medicine; Visit Provider Internal Medicine
DX: N64.4 Mastodynia (principal); N62 Hypertrophy of breast
CPT/HCPCS: 76642; 77066; G0279

== ENCOUNTER 2018-07-10 09:19 | Emergency (ER) | payer MEDICARE, OTHER, SELFPAY ==
[2018-07-10 09:42] VITALS: BP 97/59; PULSE 71; RESP 20; TEMP 36.4; O2SAT 91; BMI 27.1
--- NOTE | 2018-07-10 10:08 | DI.CT.S_ITS ---
PROCEDURE: CT CHEST WO CON INDICATIONS: fall with entire right side rib pain TECHNIQUE: Noncontrast 5 mm thick sections acquired from the pulmonary apices to the posterior costophrenic angles. 7 mm thick coronal and sagittal MIP reformats were then acquired. For radiation dose reduction, the following was used: automated exposure control, adjustment of mA and/or kV according to patient size. COMPARISON: [facility], CR, XR SHOULDER RT MIN 2V, 07/10/2018, 10:15. [facility], CT, PE STUDY (CTA CHEST), 08/07/2013, 10:49. [facility], CT, THORAX WITHOUT CONTRAST, 03/26/2016, 8:28. [facility], CR, XR CHEST 2 VIEWS, 06/24/2018, 12:39. [facility], CT, CT CHEST WITHOUT CONTRAST, 04/15/2018, 10:57. FINDINGS: Image quality: Excellent. Lungs and pleura: There is a 6 mm nodule in the right middle, unchanged in size since 03/26/2016. A single nodule in the left lower lobe is also stable. There is right basilar atelectasis. Mild emphysema. No acute air space opacities. No pleural effusions or pneumothorax. Central and peripheral airways are patent and normal in caliber. Mediastinum: Heart size is normal. No pericardial effusion. Severe coronar liquefication consist with atherosclerosis. There is a prosthetic mitral valve. Cardiac pacemaker is noted. Slightly prominent mediastinal lymph nodes are present measuring up to 1 cm in short axis. Thoracic aorta and central pulmonary arteries are normal in size. Esophagus is normal in caliber. No hiatal hernia. Bones and chest wall: No suspicious bony lesions. Right lateral clavicular head fracture. No vertebral body compression fractures. No axillary or supraclavicular adenopathy by size criteria. Thyroid gland is normal. Abdomen: The liver demonstrates nodular contour consistent with cirrhosis. Low-density nodules in the liver are indeterminate. There is a large amount of ascites. There are calcified gallstones. IMPRESSION: 1. No right rib fractures identified. There is a right lateral clavicular head fracture. 2. Stable small lung nodules compatible with benign nodules. 3. Mild emphysema. 4. Severe coronary artery atherosclerosis. 5. Cirrhosis with large amount of ascites. 6. Indeterminate low density nodules in liver. In this patient with cirrhosis, MRI may be obtained for followup evaluation. 7. Cholelithiasis. Dictated by: Fidel Barrow M.D. on 07/10/2018 at 11:05 Approved by: Fidel Barrow M.D. on 07/10/2018 at 11:17
--- NOTE | 2018-07-10 10:08 | DI.RAD.S_ITS ---
PROCEDURE: XR SHOULDER RT MIN 2V INDICATIONS: fall with pain TECHNIQUE: 3 views of the shoulder were acquired. COMPARISON: , CR, XR CHEST 2 VIEWS, 06/24/2018, 12:39. FINDINGS: Bones: There is a fracture in the lateral clavicular head with superior displacement. No suspicious bony lesions. Visualized ribs appear intact. Sternotomy. Soft tissues: No suspicious soft tissue calcifications. There is a prosthetic heart valve and a cardiac pacemaker. IMPRESSION: Superiorly displaced lateral clavicular head fracture. Dictated by: Fidel Barrow M.D. on 07/10/2018 at 10:49 Approved by: Fidel Barrow M.D. on 07/10/2018 at 10:51
--- NOTE | 2018-07-10 10:12 | ED_ITS ---
HPI - General Adult General Chief complaint: Extremity Injury, Upper Stated complaint: rt shoulder and side pain from fall yesterday Time Seen by Provider: 07/10/18 09:34 Source: patient Mode of arrival: ambulatory Limitations: no limitations History of Present Illness HPI narrative: 77-year-old male with a history of pulmonary hypertension on oxygen at home here for evaluation of pain to his right side and right shoulder. He sustained a mechanical fall last evening. Did not hit his head. No loss of consciousness. Was able to get up afterwards. Overnight started having more pain in the right side of his chest and his right shoulder. Took a couple Tylenol last night. No cough. No fevers. No other injuries reported from the event. Related Data Home Medications Medication Instructions Recorded Confirmed atorvastatin [Lipitor] 5 mg PO QDAY #0 03/16/17 budesonide-formoterol [Symbicort] 2 inh INH BID #0 03/16/17 carisoprodol 350 mg PO QDAYP PRN #0 03/16/17 glimepiride [Amaryl] 4 mg PO BIDCC #0 03/16/17 lisinopril 10 mg PO QDAY #0 03/16/17 magnesium oxide 250 mg PO QDAY #0 03/16/17 multivitamin [Multiple Vitamins] 1 tab PO QDAY #0 03/16/17 sotalol 80 mg PO BID #0 03/16/17 torsemide 5 mg PO QDAY #0 03/16/17 triamcinolone acetonide 0 gm TOPICAL BID PRN #0 03/16/17 Previous Rx's Medication Instructions Recorded hydrocodone-acetaminophen [[place]] 1 tab PO Q4-6H PRN #20 tab 07/10/18 Allergies Allergy/AdvReac Type Severity Reaction Status Date / Time shellfish derived Allergy Severe SWELLS UP Unverified 09/22/17 12:08 [SHELLFISH DERIVED] Review of Systems Constitutional Denies fever(s) and Denies frequent falls Cardiovascular Denies chest pain Respiratory Comments: History of pulmonary hypertension on oxygen at home no change in baseline Gastrointestinal Gastrointestinal: Denies abdominal pain, Denies nausea and Denies vomiting Musculoskeletal Comments: Right shoulder and right chest wall pain Integumentary/Breasts Denies rash Neurologic Denies behavioral changes, Denies frequent falls and Denies lack of coordination Psychiatric Denies behavioral changes Hematologic/Lymphatic Comments: [facility] Medical History Coronary artery disease (Acute) Diabetes (Acute) Diabetes (Acute) Hypertension (Acute) Pacemaker (Acute) Surgical History S/P patent foramen ovale closure (Acute) Social History Smoking Status: Former smoker Exam Initial Vital Signs Initial Vital Signs: Vital Signs Temperature 97.5 F L 07/10/18 09:42 Pulse Rate 71 07/10/18 09:42 Respiratory Rate 20 07/10/18 09:42 Blood Pressure 97/59 L 07/10/18 09:42 Pulse Oximetry 91 07/10/18 09:42 Const General: cooperative, well developed, well groomed and No acute distress Orientation: alert, awake and oriented x3 HENMT Head: normal to inspection and normocephalic Chest Chest: No crepitus and tenderness (Right anterior and lateral chest wall pain) Resp Effort & Inspection: normal respiratory effort Auscultation: clear to auscultation bilaterally Cardio Rate: regular rate Pulses: radial pulses present Back/Spine/Pelvis Cervical Spine: No cervical spinal tenderness, No step off deformity and No cervical ROM abnormal Thoracic/Lumbar Spine: No thoracic spinal tenderness and No lumbar spinal tenderness Skin Rashes: no rashes Neuro General: alert, awake and oriented x3 Extrem Other: Tenderness to palpation along the right clavicle and also the right shoulder and right proximal humerus. Right elbow and right wrist unremarkable. Patient with difficulty the abducting right arm. Psych Appearance: grossly normal and well kempt Course Orders Ordered: ED Orders 07/10/18 10:08 CT chest wo con Stat XR shoulder RT min 2V Stat Discontinued Medications Hydrocodone Bitart/Acetaminophen ([place] 5/325) 1 tab PO NOW ONE Stop: 07/10/18 10:10 Last Admin: 07/10/18 11:45 Dose: 1 tab Vital Signs - 8 hr 07/10/18 09:42 Temperature 97.5 F L Pulse Rate 71 Respiratory Rate 20 Blood Pressure 97/59 L Pulse Oximetry 91 Medical Decision Making Lab Data Point of Care Testing Glucose POC 175 Point of care testing: Point of Care Testing Glucose POC 175 Imaging Data X-ray shoulder: Radiologist's impression: [address] [address] XRay Report Signed Patient: Kenneth Curiel BMR#: [id number] : 1Acct:[id number] Age/Sex: 77 / MDate of Service: 07/10/18 Loc: ED Accession Number: [id number] Procedure: XR shoulder RT min 2V Ordering Provider: Tony Ayala D.O. PROCEDURE: XR SHOULDER RT MIN 2V INDICATIONS: fall with pain TECHNIQUE: 3 views of the shoulder were acquired. COMPARISON: [facility], CR, XR CHEST 2 VIEWS, 06/24/2018, 12:39. FINDINGS: Bones: There is a fracture in the lateral clavicular head with superior displacement. No suspicious bony lesions. Visualized ribs appear intact. Sternotomy. Soft tissues: No suspicious soft tissue calcifications. There is a prosthetic heart valve and a cardiac pacemaker. IMPRESSION: Superiorly displaced lateral clavicular head fracture. Dictated by: Fidel Barrow M.D. on 07/10/2018 at 10:49 Approved by: Fidel Barrow M.D. on 07/10/2018 at 10:51 CT chest: Radiologist's impression: PROCEDURE: CT CHEST WO CON INDICATIONS: fall with entire right side rib pain TECHNIQUE: Noncontrast 5 mm thick sections acquired from the pulmonary apices to the posterior costophrenic angles. 7 mm thick coronal and sagittal MIP reformats were then acquired. For radiation dose reduction, the following was used: automated exposure control, adjustment of mA and/or kV according to patient size. COMPARISON: [facility], CR, XR SHOULDER RT MIN 2V, 07/10/2018, 10:15. [facility], CT, PE STUDY (CTA CHEST), 08/07/2013, 10:49. [facility], CT, THORAX WITHOUT CONTRAST, 03/26/2016, 8:28. [facility], CR, XR CHEST 2 VIEWS, 06/24/2018, 12:39. [facility], CT, CT CHEST WITHOUT CONTRAST, 2017, 10:57. FINDINGS: Image quality: Excellent. Lungs and pleura: There is a 6 mm nodule in the right middle, unchanged in size since 03/26/2016. A single nodule in the left lower lobe is also stable. There is right basilar atelectasis. Mild emphysema. No acute air space opacities. No pleural effusions or pneumothorax. Central and peripheral airways are patent and normal in caliber. Mediastinum: Heart size is normal. No pericardial effusion. Severe coronar liquefication consist with atherosclerosis. There is a prosthetic mitral valve. Cardiac pacemaker is noted. Slightly prominent mediastinal lymph nodes are present measuring up to 1 cm in short axis. Thoracic aorta and central pulmonary arteries are normal in size. Esophagus is normal in caliber. No hiatal hernia. Bones and chest wall: No suspicious bony lesions. Right lateral clavicular head fracture. No vertebral body compression fractures. No axillary or supraclavicular adenopathy by size criteria. Thyroid gland is normal. Abdomen: The liver demonstrates nodular contour consistent with cirrhosis. Low- density nodules in the liver are indeterminate. There is a large amount of ascites. There are calcified gallstones. IMPRESSION: 1. No right rib fractures identified. There is a right lateral clavicular head fracture. 2. Stable small lung nodules compatible with benign nodules. 3. Mild emphysema. 4. Severe coronary artery atherosclerosis. 5. Cirrhosis with large amount of ascites. 6. Indeterminate low density nodules in liver. In this patient with cirrhosis, MRI may be obtained for followup evaluation. 7. Cholelithiasis. Dictated by: Fidel Barrow M.D. on 07/10/2018 at 11:05 [facility] Narrative Medical decision making narrative: There is a right lower rib fracture. Series 2, image 33. No underlying lung pathology. Does have a distal clavicle fracture. Patient is not hypoxic. He does have oxygen at home. He is able to take a deep breath after pain medication. Feel like he does not need admitted to the hospital. Will send home with pain medications. He was given return precautions. He expressed understanding and agreement with plan. Discharge Plan Departure Patient Disposition: Home Clinical Impression: Closed fracture of distal clavicle, Fracture of rib Instructions: DI for Rib Fracture, DI for Clavicle Fracture-Adult Activity Restrictions/Additional Instructions: I do recommend that you move your shoulder as much as possible like we discussed. I also recommend you take the pain medications that you are able to take deep breaths. Contact your primary care doctor for a follow-up. Return to the emergency department for any new symptoms, fevers, shortness of breath, or any other concerning symptoms. Prescriptions: New hydrocodone-acetaminophen [[place]] 5-325 mg tablet 1 tab PO Q4-6H PRN (Reason: pain) Qty: 20 RF: 0 No Action torsemide 5 MG tablet 5 mg PO QDAY Qty: 0 RF: 0 carisoprodol 350 MG tablet 350 mg PO QDAYP PRNQty: 0 RF: 0 atorvastatin [Lipitor] 10 MG tablet 5 mg PO QDAY Qty: 0 RF: 0 lisinopril 10 MG tablet 10 mg PO QDAY Qty: 0 RF: 0 sotalol 80 MG tablet 80 mg PO BID Qty: 0 RF: 0 glimepiride [Amaryl] 4 MG tablet 4 mg PO BIDCC Qty: 0 RF: 0 magnesium oxide 250 MG tablet 250 mg PO QDAY Qty: 0 RF: 0 multivitamin [Multiple Vitamins] 1 EACH tablet 1 tab PO QDAY Qty: 0 RF: 0 triamcinolone acetonide 0.1 % ointment Topical BID PRNQty: 0 RF: 0 budesonide-formoterol [Symbicort] 80 MCG/4.5 MCG HFA aerosol inhaler 2 inh INH BID Qty: 0 RF: 0
[2018-07-10] MEDS: HYDROCODONE/ACET 5/325 TABLET 1 TAB PO (11:45)
--- NOTE | 2018-07-10 12:00 | PC.NURSE ---
Brought patient chicken noodle soup
--- NOTE | 2018-07-10 13:17 | PC.NURSE ---
pt didn't notice any relief from the hydrocodone, explained tylenol limit and granddaughter understands this also. pt alert and stayed in wheelchair his entire visit here related to comfort.
== END 2018-07-10 12:30 | disposition home or self-care (01) ==
PROVIDERS: Emergency Provider Emergency Medicine; PCP Internal Medicine
DX: S42.001A Fracture of unspecified part of right clavicle, initial encounter for closed fracture (principal); S22.31XA Fracture of one rib, right side, initial encounter for closed fracture; W19.XXXA Unspecified fall, initial encounter
CPT/HCPCS: 71250; 73030; 82962; 99283

== ENCOUNTER → 2018-07-15 10:58 | Outpatient (CLI) | payer MEDICARE, OTHER, SELFPAY ==
--- NOTE | 2018-07-15 | DI.RAD.S_ITS ---
PROCEDURE: XR KNEE RT 1TO2V INDICATIONS: PAIN IN RIGHT KNEE TECHNIQUE: AP and lateral views of the knee were acquired. COMPARISON: None. FINDINGS: Bones: No fractures or dislocations are identified. The patella is high riding. There is superior patellar osteophyte. There is thickening of the tissues inferior to the patella. Soft tissues: No joint effusion. No suspicious soft tissue calcifications. IMPRESSION: High riding patella. Clinical evaluation of the infrapatellar tendon is suggested. Mild degenerative change. Dictated by: Kale Thao M.D. on 07/15/2018 at 11:54 Approved by: Kale Thao M.D. on 07/15/2018 at 11:57
== END ==
PROVIDERS: PCP Internal Medicine; Visit Provider Internal Medicine
DX: M25.561 Pain in right knee (principal); M17.11 Unilateral primary osteoarthritis, right knee
CPT/HCPCS: 73560

== ENCOUNTER 2019-02-20 14:13 | Emergency (ER) | payer MEDICARE, OTHER, SELFPAY ==
[2019-02-20 14:20] VITALS: BP 116/65; PULSE 65; RESP 18; TEMP 36.5; O2SAT 93
--- NOTE | 2019-02-20 14:24 | ED.EYEPROB ---
HPI - Eye Problem General Chief complaint: Eye Problems Stated complaint: right eye bleeding today/on Warfarin 2.0 Time Seen by Provider: 02/20/19 14:23 Source: patient and family Mode of arrival: ambulatory Limitations: no limitations History of Present Illness HPI Narrative: Male on Coumadin for valve replacement presenting with right eye subconjunctival hematoma.. states she notices it this morning. They applied a washcloth to the area. He denies any pain he has no photophobia he denies scratching her having anything in his eye. He has no loss of vision or blurry vision. They have a home INR machine a check it every Wednesday today it is 2.0. chief complaint: eye redness Onset description: sudden Related Data Home Medications Medication Instructions Recorded Confirmed atorvastatin [Lipitor] 5 mg PO QDAY #0 03/16/17 budesonide-formoterol [Symbicort] 2 inh INH BID #0 03/16/17 carisoprodol 350 mg PO QDAYP PRN #0 03/16/17 glimepiride [Amaryl] 4 mg PO BIDCC #0 03/16/17 lisinopril 10 mg PO QDAY #0 03/16/17 magnesium oxide 250 mg PO QDAY #0 03/16/17 multivitamin [Multiple Vitamins] 1 tab PO QDAY #0 03/16/17 sotalol 40 mg PO BID #0 03/16/17 triamcinolone acetonide 0 gm TOPICAL BID PRN #0 03/16/17 digoxin 125 mcg PO DAILY 02/20/19 02/20/19 eplerenone 50 mg PO BID 02/20/19 02/20/19 ferrous sulfate 325 mg PO DAILY 02/20/19 02/20/19 insulin aspart U-100 [Novolog 6 unit SUBCUT TID 02/20/19 02/20/19 Flexpen U-100 Insulin] insulin glargine [Lantus U-100 24 unit SUBCUT QAM 02/20/19 02/20/19 Insulin] potassium chloride 10 meq PO DAILY 02/20/19 02/20/19 selexipag [Uptravi] 600 mcg PO BID 02/20/19 02/20/19 sildenafil (antihypertensive) 120 mg PO PRN PRN 02/20/19 02/20/19 tamsulosin 0.4 mg PO DAILY 02/20/19 02/20/19 torsemide 100 mg PO DAILY 02/20/19 02/20/19 warfarin 02/20/19 Previous Rx's Medication Instructions Recorded hydrocodone-acetaminophen [[place]] 1 tab PO Q4-6H PRN #20 tab 07/10/18 Allergies Allergy/AdvReac Type Severity Reaction Status Date / Time shellfish derived Allergy Severe SWELLS UP Unverified 09/22/17 12:08 [SHELLFISH DERIVED] zolpidem [From Ambien] AdvReac Verified 02/20/19 14:23 Review of Systems Review of Systems Narrative: GENERAL: Denies chills,fever HEENT: See HPI RESPIRATORY: Denies dyspnea, cough, wheezing CARDIOVASCULAR: Denies chest pain, palpitations GASTROINTESTINAL: Denies nausea, vomiting MUSCULOSKELETAL: Denies extremity pain, injury SKIN: No rash, no laceration, no pruritus NEUROLOGIC: Denies weakness, dizziness, headache, numbness 8 point review of systems is negative except for those stated above and HPI [facility] Medical History Coronary artery disease (Acute) Diabetes (Acute) Diabetes (Acute) Hypertension (Acute) Pacemaker (Acute) Surgical History S/P patent foramen ovale closure (Acute) Social History Smoking Status: Former smoker Social History Smoking Status: Former smoker Exam Initial Vital Signs Initial Vital Signs: Vital Signs Temperature 97.7 F 02/20/19 14:20 Pulse Rate 65 02/20/19 14:20 Respiratory Rate 18 02/20/19 14:20 Blood Pressure 116/65 02/20/19 14:20 Pulse Oximetry 93 02/20/19 14:20 GENERAL: Alert pleasant elderly male and in no acute distress. HEENT: Head atraumatic,EOMI, pupils reactive, face symmetric, moist mucous membranes EYES: Right eye subconjunctival hematoma. I stained with 1st seen no dye uptake. CARDIOVASCULAR: Regular rate and rhythm without murmurs, rubs or gallops. RESPIRATORY: Breath sounds equal bilaterally, no wheezes rales or rhonchi. ABDOMEN: Soft, nontender. Normoactive bowel sounds all 4 quadrants. No guarding or rebound. EXTREMITIES: Normal range of motion, no clubbing or edema. Neurovascularly intact NEUROLOGICAL: Alert and oriented x4.Normal gait and speech. SKIN: Warm, dry, no laceration, no petechiae, no rashes or lesions. Eyes Periorbital: periorbital findings normal Eyelids: eyelids normal Conjunctivae: conjunctival abnormality right subconjunctival hemorrhage Pupils: PERRL EOM: EOM intact bilaterally Course Orders Ordered: Discontinued Medications Proparacaine HCl (Parcaine 0.5% Ophth Fay) 1 drops EYE-RIGHT NOW ONE Stop: 02/20/19 14:29 Last Admin: 02/20/19 14:33 Dose: 1 drop Documented by: TUTU Vital Signs Vital signs: Vital Signs - 8 hr 02/20/19 14:20 Temperature 97.7 F Pulse Rate 65 Respiratory Rate 18 Blood Pressure 116/65 Pulse Oximetry 93 MDM - Eye Problem MDM Narrative Medical decision making narrative: No active bleeding at this time. Patient really has no complaints. At this time no indication to stop Coumadin. Discharge Plan Departure Patient Disposition: Home Clinical Impression: Subconjunctival hemorrhage Qualifiers: Laterality: right Qualified Code(s): H11.31 - Conjunctival hemorrhage, right eye Discharge Date/Time: 02/20/19 14:56 Instructions: DI for Subconjunctival Hemorrhage Activity Restrictions/Additional Instructions: *You have been diagnosed with right subconjunctival hemorrhage *What to do: This will heal on its own. Over the next 1-2 weeks. If bleeding worsens you may sit up right and apply pressure with a washcloth as you did previously. *Continue to take medications as directed Continue Coumadin at this time and continue to check INR weekly *Follow up with your primary care provider in 2-3 days *Return to ER if you should have loss of vision, painful, persistent bleeding or any new, worsening or concerning symptoms Prescriptions: No Action carisoprodol 350 MG tablet 350 mg PO QDAYP PRNQty: 0 RF: 0 atorvastatin [Lipitor] 10 MG tablet 5 mg PO QDAY Qty: 0 RF: 0 lisinopril 10 MG tablet 10 mg PO QDAY Qty: 0 RF: 0 sotalol 80 MG tablet 40 mg PO BID Qty: 0 RF: 0 glimepiride [Amaryl] 4 MG tablet 4 mg PO BIDCC Qty: 0 RF: 0 magnesium oxide 250 MG tablet 250 mg PO QDAY Qty: 0 RF: 0 multivitamin [Multiple Vitamins] 1 EACH tablet 1 tab PO QDAY Qty: 0 RF: 0 triamcinolone acetonide 0.1 % ointment 0 gm Topical BID PRNQty: 0 RF: 0 budesonide-formoterol [Symbicort] 80 MCG/4.5 MCG HFA aerosol inhaler 2 inh INH BID Qty: 0 RF: 0 hydrocodone-acetaminophen [[place]] 5-325 mg tablet 1 tab PO Q4-6H PRN (Reason: pain) Qty: 20 RF: 0 Lantus U-100 Insulin 100 unit/mL solution 24 unit SUBCUT QAM RF: 0 warfarin 2.5 mg tablet RF: 0 torsemide 100 mg tablet 100 mg PO DAILY RF: 0 tamsulosin 0.4 mg capsule 0.4 mg PO DAILY RF: 0 digoxin 125 mcg tablet 125 mcg PO DAILY RF: 0 ferrous sulfate 325 mg (65 mg iron) tablet,delayed release (DR/EC) 325 mg PO DAILY RF: 0 eplerenone 50 mg tablet 50 mg PO BID RF: 0 Novolog Flexpen U-100 Insulin 100 unit/mL (3 mL) insulin pen 6 unit SUBCUT TID RF: 0 potassium chloride 10 mEq tablet,ER particles/crystals 10 meq PO DAILY RF: 0 sildenafil (antihypertensive) 20 mg tablet 120 mg PO PRN PRN (Reason: Erectile Dysfunction) RF: 0 Uptravi 600 mcg tablet 600 mcg PO BID RF: 0 Referrals: Margarita Rutledge MD [Primary Care Provider] -
[2019-02-20] MEDS: PROPARACAINE 0.5% OPHTH SOL 1 DROPS EYE-RIGHT (14:33)
== END 2019-02-20 14:56 | disposition home or self-care (01) ==
PROVIDERS: Emergency Provider Emergency Medicine; PCP Internal Medicine
DX: H11.31 Conjunctival hemorrhage, right eye (principal); Z79.01 Long term (current) use of anticoagulants
CPT/HCPCS: 99282

== ENCOUNTER 2019-02-28 13:32 | Emergency (ER) | payer MEDICARE, OTHER, SELFPAY ==
[2019-02-28 13:44] VITALS: BP 84/54; PULSE 73; RESP 18; O2SAT 94; BMI 24.7
--- NOTE | 2019-02-28 14:17 | DI.RAD.S_ITS ---
PROCEDURE: XR RIBS LT MIN 3V W CXR1V INDICATIONS: pain sp fall TECHNIQUE: 2 views of the left ribs were acquired, along with a single view chest. COMPARISON: None. FINDINGS: Surgical changes and devices: Pacemaking device and dual chamber leads appear normal, sternotomy wires show no evidence of disruption.. Bones and chest wall: No fractures or dislocations. No suspicious bony lesions. Overlying soft tissues appear unremarkable. Prior acromioplasty right a.c. joint. Lungs and pleura: No pleural effusions or pneumothorax. Lungs appear mildly edematous. Mediastinum: Mediastinal contours appear normal. Heart size is at the upper limits of normal. IMPRESSION: No trauma found, no pneumothorax seen. Possible mild CHF pattern in this patient with prior CABG and dual-chamber cardiac pacemaking device.. Dictated by: Anthony Toscano M.D. on 02/28/2019 at 14:55 Approved by: Anthony Toscano M.D. on 02/28/2019 at 15:02
[2019-02-28 14:22] LABS: Add Manual Diff / Slide Review NO; Basophils Absolute Auto 0 /uL (0-100); Basophils Percent Auto 0.6 % (0-2); Eosinophils Absolute Auto 200 /uL (0-450); Eosinophils Percent Auto 2.2 % (2-4); Hematocrit 42.4 % (41-53); Hemoglobin 14.4 g/dL (13.5-17.5); Lymphocytes Absolute Auto 400 /uL (1100-4500); Mean Corpuscular HGB Conc 33.9 % (30-36); Mean Corpuscular Hemoglobin 28.4 PG (26-34); Mean Corpuscular Volume 83.7 fL (80-100); Monocytes Absolute Auto 1300 /uL (0-900); Monocytes Percent Auto 16.7 % (3-14); Neutrophils Absolute Auto 6000 /uL (1500-7000); Neutrophils Percent Auto 75.5 % (50-75); Platelet Count 149 X10^3/uL (150-400); Red Blood Cell Count 5.07 X10^6/uL (4.5-5.9); Red Cell Distribution Width 16.6 % (11.6-14.8); White Blood Cell Count 7.9 X10^3/uL (4.5-11.0)
--- NOTE | 2019-02-28 14:24 | DI.CT.S_ITS ---
PROCEDURE: CT HEAD/BRAIN WO CON INDICATIONS: glf, on thinner TECHNIQUE: Noncontrast 4.5 mm thick angled axial sections acquired from the foramen magnum to the vertex, with coronal and sagittal reformats. For radiation dose reduction, the following was used: automated exposure control, adjustment of mA and/or kV according to patient size. COMPARISON: [facility], CT, HEAD WITHOUT CONTRAST, 08/18/2013, 12:33. FINDINGS: Image quality: Excellent. CSF spaces: Basal cisterns are patent. No extra-axial fluid collections. The ventricles are symmetric in size and shape. Brain: No intracranial bleeds or masses. There is cerebral volume loss for age, with resultant ventricular and sulcal prominence. There are periventricular and deep white matter chronic small vessel ischemic changes. There is intracranial internal carotid artery atherosclerosis. Skull and face: Calvarium and visualized facial bones appear intact, without suspicious lesions. Sinuses: Visualized sinuses and mastoids are clear. IMPRESSION: No trauma found. Stable moderate microvascular atherosclerotic change in the deep white matter of each hemisphere expected for age. Dictated by: Anthony Toscano M.D. on 02/28/2019 at 14:45 Approved by: Anthony Toscano M.D. on 02/28/2019 at 14:46
[2019-02-28 14:31] LABS: INR 3.1 (0.9-1.3); Prothrombin Time 36.7 SECONDS (10.1-12.7)
[2019-02-28 14:34] LABS: PTT Partial Thromboplastin Tim 46 SECONDS (26.4-36.2)
[2019-02-28 14:38] LABS: Alanine Aminotransferase 22 IU/L (21-72); Albumin 4.2 g/dL (3.5-5.0); Albumin Globulin Ratio 1.2 (1.0-2.8); Alkaline Phosphatase 123 U/L (38-126); Aspartate Aminotransferase 33 IU/L (17-59); BUN Creatinine Ratio 43.6 (6-22); Bilirubin Total 1.3 mg/dL (0.2-1.3); Blood Urea Nitrogen 61 mg/dL (9-20); Calcium 9.3 mg/dL (8.4-10.2); Carbon Dioxide 28 mmol/L (22-32); Chloride 83 mmol/L (98-107); Globulin 3.4 g/dL (1.7-4.1); Glucose 89 mg/dL (80-110); HEMOLYSIS < 15 (0-50); Potassium 4.2 mmol/L (3.4-5.1); Sodium 125 mmol/L (137-145); Total Protein 7.6 g/dL (6.3-8.2)
[2019-02-28 15:33] VITALS: PULSE 80; RESP 18; O2SAT 98
[2019-02-28 15:39] VITALS: BP 92/75; PULSE 78; RESP 15; O2SAT 94
--- NOTE | 2019-02-28 19:18 | ED.FALL ---
HPI - Fall <Chapis Jerry PHYSICAL THERAPY SUPERVISOR-BC - Last Filed: 02/28/19 19:25> General Chief Complaint: Fall Stated Complaint: GLF Time Seen by Provider: 02/28/19 13:57 Source: patient, family and EMS Mode of arrival: EMS Limitations: no limitations History of Present Illness HPI Narrative: The patient is a 78-year-old male who presents by EMS accompanied by his who presents after a ground level fall today. He states he tripped and fell while going into a lunch restaurant. He states he hit his head. He is concerned he is on Coumadin. He states his INR was 3.0 this morning. The patient denies any loss of consciousness, denies any neck or back pain. He denies any other pain. He states he does not want to be in the emergency department as he does not believe he needs to be here. He is adamant that he tripped and fell, did not have medical reason for fall. He has some left rib pain. States he hit his head on cement. Given that the patient has a ground level fall on blood thinners, modified trauma was activated. The patient states he has a long medical history including diabetes, pulmonary hypertension, pacemaker and that he is a former smoker Related Data Home Medications Medication Instructions Recorded Confirmed sotalol 40 mg PO BID #0 03/16/17 02/28/19 digoxin 125 mcg PO DAILY 02/20/19 02/28/19 eplerenone 50 mg PO BID 02/20/19 02/28/19 ferrous sulfate 325 mg PO DAILY 02/20/19 02/28/19 insulin aspart U-100 [Novolog 6 unit SUBCUT TID 02/20/19 02/28/19 Flexpen U-100 Insulin] insulin glargine [Lantus U-100 24 unit SUBCUT QAM 02/20/19 02/28/19 Insulin] potassium chloride 10 meq PO DAILY 02/20/19 02/28/19 selexipag [Uptravi] 600 mcg PO BID 02/20/19 02/28/19 sildenafil (antihypertensive) 40 mg PO TID 02/20/19 02/28/19 tamsulosin 0.4 mg PO DAILY 02/20/19 02/28/19 torsemide 100 mg PO DAILY 02/20/19 02/28/19 cholecalciferol (vitamin D3) 2,000 unit PO DAILY 02/28/19 02/28/19 [Vitamin D3] mirtazapine 15 mg PO BEDTIME 02/28/19 02/28/19 sertraline 25 mg PO BEDTIME PRN 02/28/19 02/28/19 turmeric root extract 1,053 mg PO DAILY 02/28/19 02/28/19 warfarin 02/28/19 Allergies Allergy/AdvReac Type Severity Reaction Status Date / Time shellfish derived Allergy Severe SWELLS UP Verified 02/28/19 13:44 [SHELLFISH DERIVED] zolpidem [From Ambien] AdvReac Verified 02/28/19 13:44 Review of Systems <ROSANNE Douglas - Last Filed: 02/28/19 19:25> Review of Systems Narrative: GENERAL: Denies chills, fatigue, malaise, fever, sweats. HEENT: Denies sinus pain, ear pain, sore throat, difficulty swallowing, dizziness. RESPIRATORY: Denies dyspnea, cough, wheezing, hemoptysis, sputum. CARDIOVASCULAR: Denies chest pain, palpitations, orthopnea, edema, GASTROINTESTINAL: Denies nausea, vomiting, abdominal pain, diarrhea, constipation, melena. : Denies dysuria, frequency, incontinence, hematuria, urinary retention. MUSCULOSKELETAL: See HPI SKIN: Denies rash, skin lesions, or other NEUROLOGIC: See HPI PSYCHIATRIC: No concerning psychosocial issues. 12 point review of systems is negative except for those stated above Exam <JUDIT Douglas- - Last Filed: 02/28/19 19:25> Narrative Exam Narrative: GENERAL: Chronically ill male in no acute distress HEAD: Atraumatic. Normocephalic. No temporal or scalp tenderness. EYES: Pupils equal round and reactive. Extraocular motions intact. No scleral icterus. No injection or drainage. ENT: Nose without bleeding, purulent drainage or septal hematoma. Throat without erythema, tonsillar hypertrophy or exudate. Uvula midline. Airway patent. NECK: Trachea midline. No JVD or lymphadenopathy. Supple, nontender, no meningeal signs. CARDIOVASCULAR: Regular rate and rhythm without murmurs, gallops, or rubs. Paced rhythm. RESPIRATORY: Clear to auscultation. Breath sounds equal bilaterally. No wheezes, rales, or rhonchi. No cough. No increased respiratory effort. No accessory muscle use. Patient is home oxygen in place patient has pain to palpation as lateral chest wall compression. GASTROINTESTINAL: Abdomen soft, non-tender, nondistended. No hepato-splenomegaly, or palpable masses. No guarding. Active bowel sounds all 4 quadrants EXTREMITIES: No clubbing, cyanosis, or edema. No joint tenderness, effusion, or edema noted. BACK: Nontender without deformity or crepitance. No flank tenderness. No pain to CT or L-spine palpation. NEURO: AOx3. SKIN: No rash or erythema. Initial Vital Signs Initial Vital Signs: Vital Signs Pulse Rate 73 02/28/19 13:44 Respiratory Rate 18 02/28/19 13:44 Blood Pressure 84/54 L 02/28/19 13:44 Pulse Oximetry 94 02/28/19 13:44 <Chapis Morales DO - Last Filed: 02/28/19 19:29> Initial Vital Signs Initial Vital Signs: Vital Signs Pulse Rate 73 02/28/19 13:44 Respiratory Rate 18 02/28/19 13:44 Blood Pressure 84/54 L 02/28/19 13:44 Pulse Oximetry 94 02/28/19 13:44 PFSH <TAI Douglas - Last Filed: 02/28/19 19:25> Medical History Coronary artery disease (Acute) Diabetes (Acute) Diabetes (Acute) Hypertension (Acute) Pacemaker (Acute) Social History Smoking Status: Former smoker Scores <TAI Douglas - Last Filed: 02/28/19 19:25> GCS [place] coma scale eye opening: Spontaneous [place] coma scale verbal response: Orientated [place] coma scale motor response: Obey commands [place] coma scale total score: 15 Nexus Score for C-Spine Focal Neurologic deficit present: No Midline spinal tenderness present: No Altered level of conciousness present: No Intoxication present: No Distracting Injury Present: No Nexus Criteria for C-spine: 0 Course <TAI Douglas - Last Filed: 02/28/19 19:25> Orders Ordered: ED Orders 02/28/19 14:15 Complete Blood Count AUTO DIFF Stat Comprehensive Metabolic Panel Stat Partial Thromboplastin Time Stat Prothrombin Time INR Stat 02/28/19 14:17 XR ribs LT min 3V w CXR1V Stat 02/28/19 14:24 CT head/brain wo con Stat Vital Signs Vital signs: Vital Signs - 8 hr 02/28/19 13:44 02/28/19 15:33 02/28/19 15:39 Pulse Rate 73 80 78 Respiratory Rate 18 18 15 Blood Pressure 84/54 L Blood Pressure [Right Arm] 92/75 Pulse Oximetry 94 98 94 <Chapis Morales DO - Last Filed: 02/28/19 19:29> Orders Ordered: ED Orders 02/28/19 14:15 Complete Blood Count AUTO DIFF Stat Comprehensive Metabolic Panel Stat Partial Thromboplastin Time Stat Prothrombin Time INR Stat 02/28/19 14:17 XR ribs LT min 3V w CXR1V Stat 02/28/19 14:24 CT head/brain wo con Stat Vital Signs Vital signs: Vital Signs - 8 hr 02/28/19 13:44 02/28/19 15:33 02/28/19 15:39 Pulse Rate 73 80 78 Respiratory Rate 18 18 15 Blood Pressure 84/54 L Blood Pressure [Right Arm] 92/75 Pulse Oximetry 94 98 94 MDM - Fall <JUDIT Douglas-BC - Last Filed: 02/28/19 19:25> Lab Data Result diagrams: 02/28/19 14:15 02/28/19 14:15 Labs: Lab Results 02/28/19 02/28/19 02/28/19 Range/Units 14:15 14:15 14:15 WBC 7.9 (4.5-11.0) X10^3/uL RBC 5.07 (4.5-5.9) X10^6/uL Hgb 14.4 (13.5-17.5) g/dL Hct 42.4 (41-53) % MCV 83.7 (80-100) fL MCH 28.4 (26-34) PG MCHC 33.9 (30-36) % RDW 16.6 H (11.6-14.8) % Plt Count 149 L (150-400) X10^3/uL Neut % (Auto) 75.5 H (50-75) % Lymph % (Auto) 5.0 L (25-40) % [place] % (Auto) 16.7 H (3-14) % Eos % (Auto) 2.2 (2-4) % Baso % (Auto) 0.6 (0-2) % Neut # (Auto) 6000 (5615-9329) /uL Lymph # (Auto) 400 L (3315-8957) /uL Durham # (Auto) 1300 H (0-900) /uL Eos # (Auto) 200 (0-450) /uL Baso # (Auto) 0 (0-100) /uL PT 36.7 H (10.1-12.7) SECONDS INR 3.1 H (0.9-1.3) APTT 46 H D (26.4-36.2) SECONDS Sodium 125 L (137-145) mmol/L Potassium 4.2 (3.4-5.1) mmol/L Chloride 83 L (98-107) mmol/L Carbon Dioxide 28 (22-32) mmol/L BUN 61 H (9-20) mg/dL Creatinine 1.40 H (0.66-1.25) mg/dL Estimated GFR 49.0 L (>60) mL/min BUN/Creatinine Ratio 43.6 H (6-22) Glucose 89 (80-110) mg/dL Calcium 9.3 (8.4-10.2) mg/dL Total Bilirubin 1.3 (0.2-1.3) mg/dL AST 33 (17-59) IU/L ALT 22 (21-72) IU/L Alkaline Phosphatase 123 (38-126) U/L Total Protein 7.6 (6.3-8.2) g/dL Albumin 4.2 (3.5-5.0) g/dL Globulin 3.4 (1.7-4.1) g/dL Albumin/Globulin Ratio 1.2 (1.0-2.8) Imaging Data rib xray : Radiologist's impression: [address] [address] XRay Report Signed Patient: Kenneth Curiel BMR#: [id number] : 1Acct:[id number] Age/Sex: 78 / MDate of Service: 02/28/19 Loc: ED Accession Number: [id number] Procedure: XR ribs LT min 3V w CXR1V Ordering Provider: Chapis Jerry-DIVINA PROCEDURE: XR RIBS LT MIN 3V W CXR1V INDICATIONS: pain sp fall TECHNIQUE: 2 views of the left ribs were acquired, along with a single view chest. COMPARISON: None. FINDINGS: Surgical changes and devices: Pacemaking device and dual chamber leads appear normal, sternotomy wires show no evidence of disruption.. Bones and chest wall: No fractures or dislocations. No suspicious bony lesions. Overlying soft tissues appear unremarkable. Prior acromioplasty right a.c. joint. Lungs and pleura: No pleural effusions or pneumothorax. Lungs appear mildly edematous. Mediastinum: Mediastinal contours appear normal. Heart size is at the upper limits of normal. IMPRESSION: No trauma found, no pneumothorax seen. Possible mild CHF pattern in this patient with prior CABG and dual-chamber cardiac pacemaking device.. Dictated by: Anthony Toscano M.D. on 02/28/2019 at 14:55 Approved by: Anthony Toscano M.D. on 02/28/2019 at 15:[address]: Radiologist's impression: [place] [address] CT Scan Report Signed Patient: Kenneth Curiel BMR#: [id number] : 1940cct:[id number] Age/Sex: 78 / MDate of Service: 02/28/19 Loc: ED Accession Number: [id number] Procedure: CT head/brain wo con Ordering Provider: Chapis Jerry- PROCEDURE: CT HEAD/BRAIN WO CON INDICATIONS: glf, on thinner TECHNIQUE: Noncontrast 4.5 mm thick angled axial sections acquired from the foramen magnum to the vertex, with coronal and sagittal reformats. For radiation dose reduction, the following was used: automated exposure control, adjustment of mA and/or kV according to patient size. COMPARISON: [facility], CT, HEAD WITHOUT CONTRAST, 08/18/2013, 12:33. FINDINGS: Image quality: Excellent. CSF spaces: Basal cisterns are patent. No extra-axial fluid collections. The ventricles are symmetric in size and shape. Brain: No intracranial bleeds or masses. There is cerebral volume loss for age, with resultant ventricular and sulcal prominence. There are periventricular and deep white matter chronic small vessel ischemic changes. There is intracranial internal carotid artery atherosclerosis. Skull and face: Calvarium and visualized facial bones appear intact, without suspicious lesions. Sinuses: Visualized sinuses and mastoids are clear. IMPRESSION: No trauma found. Stable moderate microvascular atherosclerotic change in the deep white matter of each hemisphere expected for age. MDM Narrative Medical decision making narrative: The patient is a 70-year-old male on Coumadin who presents with a chief complaint of a ground level fall. He states he feels fine after his fall, biggest complaint is missing his lunch. Given his mechanism as well as history, a modified trauma was activated. The patient received a head CT, his C-spine was cleared by nexus criteria. Given his pain in his ribs with x-ray was obtained which came back negative for any acute fracture. However the patient did receive incentive spirometer teaching. I discussed at length the importance of PCP follow-up. Discussed have his INR 3.1. The patient sitting in his feet, able to ambulate in the ER. Discussed his low sodium, but patient states that is normal for him. Patient states his blood pressure is normal for him. Encourage PCP follow-up. Discussed going back to the ER for any acute concerns. No questions or concerns upon discharge. Patient states understanding of follow-up care as well as return precautions. <Chapis Morales, DO - Last Filed: 02/28/19 19:29> Lab Data Labs: Lab Results 02/28/19 02/28/19 02/28/19 Range/Units 14:15 14:15 14:15 WBC 7.9 (4.5-11.0) X10^3/uL RBC 5.07 (4.5-5.9) X10^6/uL Hgb 14.4 (13.5-17.5) g/dL Hct 42.4 (41-53) % MCV 83.7 (80-100) fL MCH 28.4 (26-34) PG MCHC 33.9 (30-36) % RDW 16.6 H (11.6-14.8) % Plt Count 149 L (150-400) X10^3/uL Neut % (Auto) 75.5 H (50-75) % Lymph % (Auto) 5.0 L (25-40) % [place] % (Auto) 16.7 H (3-14) % Eos % (Auto) 2.2 (2-4) % Baso % (Auto) 0.6 (0-2) % Neut # (Auto) 6000 (3302-3263) /uL Lymph # (Auto) 400 L (2265-6829) /uL Durham # (Auto) 1300 H (0-900) /uL Eos # (Auto) 200 (0-450) /uL Baso # (Auto) 0 (0-100) /uL PT 36.7 H (10.1-12.7) SECONDS INR 3.1 H (0.9-1.3) APTT 46 H D (26.4-36.2) SECONDS Sodium 125 L (137-145) mmol/L Potassium 4.2 (3.4-5.1) mmol/L Chloride 83 L (98-107) mmol/L Carbon Dioxide 28 (22-32) mmol/L BUN 61 H (9-20) mg/dL Creatinine 1.40 H (0.66-1.25) mg/dL Estimated GFR 49.0 L (>60) mL/min BUN/Creatinine Ratio 43.6 H (6-22) Glucose 89 (80-110) mg/dL Calcium 9.3 (8.4-10.2) mg/dL Total Bilirubin 1.3 (0.2-1.3) mg/dL AST 33 (17-59) IU/L ALT 22 (21-72) IU/L Alkaline Phosphatase 123 (38-126) U/L Total Protein 7.6 (6.3-8.2) g/dL Albumin 4.2 (3.5-5.0) g/dL Globulin 3.4 (1.7-4.1) g/dL Albumin/Globulin Ratio 1.2 (1.0-2.8) Discharge Plan Departure Patient Disposition: Home Clinical Impression: Fall from ground level Chest wall contusion Qualifiers: Encounter type: initial encounter Laterality: left Qualified Code(s): S20.212A - Contusion of left front wall of thorax, initial encounter Closed head injury Qualifiers: Encounter type: initial encounter Qualified Code(s): S09.90XA - Unspecified injury of head, initial encounter Discharge Date/Time: 02/28/19 15:45 Instructions: How to Use an Incentive Spirometer, DI for Rib Contusion, How to Prevent Falls, DI for Closed Head Injury Activity Restrictions/Additional Instructions: Thank you for trusting us with your care today Please come back to the emergency department for any acute concerns. Please follow up with primary care provider in the next few days. Please use the incentive spirometer provided to help prevent development of pneumonia Today your head CT came back normal, your INR is 3.1 and your chest x-ray shows no obvious fractures. Prescriptions: No Action sotalol 80 MG tablet 40 mg PO BID Qty: 0 RF: 0 Lantus U-100 Insulin 100 unit/mL solution 24 unit SUBCUT QAM RF: 0 torsemide 100 mg tablet 100 mg PO DAILY RF: 0 tamsulosin 0.4 mg capsule 0.4 mg PO DAILY RF: 0 digoxin 125 mcg tablet 125 mcg PO DAILY RF: 0 ferrous sulfate 325 mg (65 mg iron) tablet,delayed release (DR/EC) 325 mg PO DAILY RF: 0 eplerenone 50 mg tablet 50 mg PO BID RF: 0 Novolog Flexpen U-100 Insulin 100 unit/mL (3 mL) insulin pen 6 unit SUBCUT TID RF: 0 potassium chloride 10 mEq tablet,ER particles/crystals 10 meq PO DAILY RF: 0 sildenafil (antihypertensive) 20 mg tablet 40 mg PO TID RF: 0 Uptravi 600 mcg tablet 600 mcg PO BID RF: 0 warfarin 2.5 mg tablet RF: 0 sertraline 50 mg tablet 25 mg PO BEDTIME PRN (Reason: depression with anxiety) RF: 0 mirtazapine 15 mg tablet 15 mg PO BEDTIME RF: 0 cholecalciferol (vitamin D3) [Vitamin D3] 2,000 unit Tablet 2,000 unit PO DAILY RF: 0 turmeric root extract 1,053 mg Tablet 1,053 mg PO DAILY RF: 0 Referrals: Margarita Rutledge MD [Primary Care Provider] -
== END 2019-02-28 15:45 | disposition home or self-care (01) ==
PROVIDERS: Emergency Provider Nurse Practitioner Family; PCP Internal Medicine
DX: S20.212A Contusion of left front wall of thorax, initial encounter (principal); S09.90XA Unspecified injury of head, initial encounter; W01.0XXA Fall on same level from slipping, tripping and stumbling without subsequent striking against object, initial encounter
CPT/HCPCS: 36591; 70450; 71101; 80053; 85025; 85610; 85730; 99282; 99284

== ENCOUNTER → 2019-03-29 12:16 | Outpatient (CLI) | payer MEDICARE, OTHER, SELFPAY ==
--- NOTE | 2019-03-29 12:23 | DI.CT.S_ITS ---
PROCEDURE: CT CHEST WO CON INDICATIONS: Other chest pain TECHNIQUE: Noncontrast 5 mm thick sections acquired from the pulmonary apices to the posterior costophrenic angles. 1 mm lung window, 5 mm thick coronal and sagittal and 7 mm axial MIP reformats were then acquired. For radiation dose reduction, the following was used: automated exposure control, adjustment of mA and/or kV according to patient size. COMPARISON: [facility], CT, CT CHEST WO CON, 12/29/2018, 07/10/2018. FINDINGS: Image quality: Diagnostic. Beam hardening artifact related to pacemaker in the left chest. Lungs and pleura: A few small scattered nodular opacities. No consolidation. There is mild reticular thickening most pronounced at the lung apices. No pleural effusions or pneumothorax. Central and peripheral airways are patent and normal in caliber. Mediastinum: Left upper chest pacemaker with right atrial and right ventricular leads. ASD closure device. The aortic valve replacement. Heart size is enlarged. No pericardial effusion. Shotty mediastinal lymph nodes similar to CT 07/10/2018. Thoracic aorta and central pulmonary arteries are normal in size. Esophagus is normal in caliber. Small hiatal hernia. Similar small volume of fluid surrounding the distal esophagus likely in a hernia sac. Bones and chest wall: No suspicious bony lesions. No vertebral body compression fractures. Post median sternotomy. Multiple prior right posterior rib fractures. Prior right clavicle fracture with incomplete osseous union. No axillary or supraclavicular adenopathy by size criteria. Thyroid gland is unremarkable. Bilateral gynecomastia. Abdomen: Ascites in the upper abdomen visualized. Several small hepatic hypodensities are unchanged compared to 07/10/2018. IMPRESSION: 1. Slight increased in mild reticular thickening most pronounced in the upper lobes. Favor mild fluid overload. No pleural effusion. 2. No acute airspace opacity. 3. Large volume of ascites. Dictated by: Jonathan Kamara M.D. on 03/29/2019 at 13:56 Approved by: Jonathan Kamara M.D. on 03/29/2019 at 14:09
== END ==
PROVIDERS: PCP Internal Medicine; Referring Provider Student in an Organized Health Care Education/Training Program; Visit Provider Internal Medicine
DX: R07.89 Other chest pain (principal); R18.8 Other ascites; I51.7 Cardiomegaly; K44.9 Diaphragmatic hernia without obstruction or gangrene; Z95.0 Presence of cardiac pacemaker; Z95.2 Presence of prosthetic heart valve
CPT/HCPCS: 71250

== ENCOUNTER → 2019-05-17 13:16 | Outpatient (CLI) | payer MEDICARE, OTHER, SELFPAY ==
--- NOTE | 2019-05-17 | DI.ECHO.S_ITS ---
[place] [facility]---------+ [facility] +---------+ : : [address] : : : : [phone] : : : : Phone: [phone] Echocardiogram Report + + :Name: TRUNG TINOCO Study Date: 05/17/2019 Height: 70 in : :[facility] Weight: 175 lb : : Gender: Male BSA: 2.0 m2 : :: 1940 Age: 78 yrs BP: 142/82 mmHg: :Reason For Study: CHF : : Performed By: [facility] Staff : :Referring: ELOY BROWN : + + Interpretation Summary Left ventricular systolic function is normal. Flattened septum is consistent with RV pressure/volume overload. The right ventricle is severely dilated. Right ventricular systolic function is moderate to severely reduced. Amplatz type atrial septal occluder noted. Prior echo showed flow across this on bubble study, There is a bioprosthetic aortic valve. The aortic valve mean gradient is 10 mmHg. There is moderate to severe tricuspid regurgitation. The right ventricular systolic pressure is estimated to be at least 75 mmHg based on an estimated right atrial pressure of 15 mm Hg. There is moderate pulmonic regurgitation. Compared to the prior echo exam, there has been an increase in the severity of pulmonary hypertension. Procedure: A two-dimensional transthoracic echocardiogram with color flow and Doppler was performed. The study quality was technically adequate. Prior echo performed on 4/5/19. The patient has a paced rhythm. Left Ventricle: The left ventricle is normal in size. There is normal left ventricular wall thickness. Left ventricular systolic function is normal. The ejection fraction is estimated to be 60-65%. Flattened septum is consistent with RV pressure/volume overload. Right Ventricle: The right ventricle is severely dilated. There is a pacemaker lead in the right ventricle. Right ventricular systolic function is moderate to severely reduced. Atria: The left atrial size is normal. There is a catheter/pacemaker lead seen in the right atrium. The right atrium is moderately dilated. Amplatz type atrial septal occluder noted. Prior echo showed flow across this on bubble study,. Mitral Valve: The mitral valve leaflets appear mildly thickened, but open well. There is mild mitral annular calcification. There is trace mitral regurgitation. 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 The prosthetic aortic valve appears to open well. The prosthetic aortic valve is well-seated. The aortic valve mean gradient is 10 mmHg. No aortic regurgitation is present. Tricuspid Valve: The tricuspid valve is not well visualized. There is moderate to severe tricuspid regurgitation. The right ventricular systolic pressure is estimated to be at least 75 mmHg based on an estimated right atrial pressure of 15 mm Hg. Compared to the prior echo exam, there has been an increase in the severity of pulmonary hypertension. Pulmonic Valve: The pulmonic valve is not well visualized. There is moderate pulmonic regurgitation. Great Vessels: The aortic root is normal size. The ascending aorta could not be visualized. The pulmonary is not well visualized. The IVC is dilated (diameter is greater than 2.1 cm) and it collapses less than 50% with a sniff. This suggests a high right atrial pressure of 15 mm Hg. Pericardium/ Pleura There is no pericardial effusion. There is no pleural effusion. MMode/2D Measurements & Calculations LVIDd: 4.8 cm LVOT diam: 1.9 cm LVIDs: 3.8 cm Ao root diam: 3.5 cm FS: 22.1 % EPSS: 0.85 cm IVSd: 1.3 cm LVPWd: 1.2 cm LV key. diameter/BSA (cm/m^2): 2.5 LV sys. diameter/BSA (cm/m^2): 1.9 LA A2 area: 21.4 cm2 RA long axis: 6.2 cm LA A4 area: 19.9 cm2 RA area: 25.4 cm2 LA length (vol): 6.3 cm RA vol: 89.1 ml LA vol: 57.6 ml RA : 45.2 ml/m2 LA vol index: 29.2 ml/m2 TAPSE: 0.92 cm Doppler Measurements & Calculations Ao V2 max: 204.1 cm/sec LVOT Max Timmy: 84.0 cm/sec Ao V2 mean: 149.5 cm/sec LV V1 max P.8 mmHg Ao max P.7 mmHg LV V1 VTI: 17.2 cm Ao mean P.3 mmHg GABRIELA(I,D): 1.2 cm2 Ao V2 VTI: 38.7 cm GABRIELA(V,D): 1.1 cm2 sev ratio: 0.45 GABRIELA indexed to BSA (cm^2/m^2): 0.63 Med Peak E' Timmy: 5.6 cm/sec TR max timmy: 343.7 cm/sec Lat Peak E' Timmy: 7.7 cm/sec TR max P.6 mmHg PA V2 max: 70.5 cm/sec PA V2 mean: 46.7 cm/sec PA mean P.1 mmHg PA Accel Time: 0.08 sec SV(LVOT): 47.7 ml Reading Physician:04:13 PM
== END ==
PROVIDERS: PCP Internal Medicine; Visit Provider Hospitalist
DX: I07.1 Rheumatic tricuspid insufficiency (principal); I37.1 Nonrheumatic pulmonary valve insufficiency; I50.30 Unspecified diastolic (congestive) heart failure; I27.20 Pulmonary hypertension, unspecified; Z95.2 Presence of prosthetic heart valve; Z95.0 Presence of cardiac pacemaker
CPT/HCPCS: 93306

== ENCOUNTER → 2019-06-19 14:40 | Outpatient (ROUT) | payer MEDICARE, OTHER, SELFPAY ==
[2019-06-19 15:21] LABS: Hemoglobin A1C% w Est Avg Glu 5.4 % (4.0-6.0)
[2019-06-19 15:26] LABS: BUN Creatinine Ratio 31.1 (6-22); Blood Urea Nitrogen 59 mg/dL (9-20); Calcium 8.9 mg/dL (8.4-10.2); Carbon Dioxide 29 mmol/L (22-32); Chloride 86 mmol/L (98-107); Estimated Glomerular Filt Rate 34.5 mL/min (>60); Glucose 122 mg/dL (80-110); HEMOLYSIS < 15 (0-50); Magnesium 2.4 mg/dL (1.6-2.3); Potassium 4.2 mmol/L (3.4-5.1); Sodium 129 mmol/L (137-145)
== END ==
PROVIDERS: PCP Internal Medicine; Visit Provider Internal Medicine
DX: R25.2 Cramp and spasm (principal); E11.9 Type 2 diabetes mellitus without complications
CPT/HCPCS: 80048; 83036; 83735

== ENCOUNTER 2020-03-25 12:44 | Emergency (ER) | payer MEDICARE, OTHER, SELFPAY ==
--- NOTE | 2020-03-25 12:49 | PC.NURSE ---
Patient had no pulse upon arrival to ER. Patient removed and placed on stretcher confirmed patient is a DNR. Time of 1241. No electrical activity by bedside US with DR Mcmanus.
--- NOTE | 2020-03-25 13:04 | ED.GENADULT ---
HPI - General Adult General Chief complaint: Unresponsive Stated complaint: Unresponsive Time Seen by Provider: 03/25/20 12:52 Source: family Mode of arrival: Family Vehicle History of Present Illness HPI narrative: Patient brought in by private vehicle by . Patient found unresponsive in the vehicle. Pulseless. CPR began immediately in during transport through triage immediately said/stated that patient is DNR DNI. Immediately stopped CPR and chest compressions as instructed by . states that they were on their way to [place] for removal of peritoneal fluid. She states that he did not want to go this morning. She states that he was tired of all his medical problems and really did not want to continue on with the more procedures. He did have a fall last week in seen at [facility]. denies any recent chest pain or abdominal pain or illness otherwise. No headache. No nausea or vomiting. No confusion or altered mental status. Related Data Home Medications Medication Instructions Recorded Confirmed sotalol 40 mg PO BID #0 03/16/17 04/19/19 digoxin 125 mcg PO DAILY 02/20/19 04/19/19 eplerenone 50 mg PO BID 02/20/19 04/19/19 ferrous sulfate 325 mg PO DAILY 02/20/19 04/19/19 insulin aspart U-100 [Novolog 6 unit SUBCUT TID 02/20/19 04/19/19 Flexpen U-100 Insulin] insulin glargine [Lantus U-100 24 unit SUBCUT QAM 02/20/19 04/19/19 Insulin] potassium chloride 10 meq PO DAILY 02/20/19 04/19/19 selexipag [Uptravi] 600 mcg PO BID 02/20/19 04/19/19 sildenafil (pulm.hypertension) 40 mg PO TID 02/20/19 04/19/19 tamsulosin 0.4 mg PO DAILY 02/20/19 04/19/19 torsemide 100 mg PO DAILY 02/20/19 04/19/19 cholecalciferol (vitamin D3) 2,000 unit PO DAILY 02/28/19 04/19/19 [Vitamin D3] mirtazapine 15 mg PO BEDTIME 02/28/19 04/19/19 sertraline 25 mg PO BEDTIME PRN 02/28/19 04/19/19 turmeric root extract 1,053 mg PO DAILY 02/28/19 04/19/19 warfarin 02/28/19 04/19/19 Allergies Allergy/AdvReac Type Severity Reaction Status Date / Time shellfish derived Allergy Severe SWELLS UP Verified 04/19/19 10:07 [SHELLFISH DERIVED] zolpidem [From Ambien] AdvReac Verified 04/19/19 10:07 Review of Systems Review of Systems Narrative: History per GENERAL: Denies chills, fatigue, malaise, fever, sweats. HEENT: Denies sinus pain, ear pain, sore throat, difficulty swallowing RESPIRATORY: Denies dyspnea, cough CARDIOVASCULAR: Denies chest pain, palpitations, edema, GASTROINTESTINAL: Denies nausea, vomiting, abdominal pain, diarrhea, constipation, melena. : Denies dysuria, frequency, hematuria MUSCULOSKELETAL: denies muscle or bony pain SKIN: Denies rash, skin lesions NEUROLOGIC: Denies weakness, headache, numbness, change in speech, confusion PSYCHIATRIC: No SI or HI or hallucinations ROS Unobtainable: All systems reviewed & are unremarkable except as noted in HPI and below Patient History Medical History Bilateral inguinal hernia (Acute) Congestive heart failure (Acute) Coronary artery disease (Acute) Diabetes (Acute) Diabetes (Acute) Hypertension (Acute) Liver failure (Acute) Pacemaker (Acute) S/P abdominal paracentesis (Acute) Surgical History S/P patent foramen ovale closure (Acute) Social History Smoking Status: Former smoker Smoking Status: Former smoker alcohol intake frequency: 0-2 drinks per day Substance Use Type: does not use Exam Narrative Exam Narrative: GENERAL: Patient pale. Unresponsive to voice and painful stimuli HEAD: Normocephalic. There is abrasion across the bridge of the nose EYES: pupils are fixed and dilated equally ENT: Mucous membranes moist. NECK: Trachea midline CARDIOVASCULAR: Magnet placed on the pacemaker. There is no no heart sounds. Bedside ultrasound no cardiac activity. No palpable pulse bilateral radius and carotids RESPIRATORY: No spontaneous breath sounds bilaterally GASTROINTESTINAL: Abdomen soft EXTREMITIES: No gross deformities. NEURO: Patient unresponsive to pain stimuli, no corneal reflex. Pupils are fixed and dilated SKIN: Warm and dry Course Course Course Narrative: Time of pronounced at 12:41 p.m. Time 1:19 p.m.. Spoke with [place] [facility], [facility], spoke with office personnel to inform patient has . Time 1:26 p.m.. Spoke with primary care physician Dr. Margarita Rutledge, informed her that patient has Time 1:45 p.m.. Spoke with Stephanie, diagnostic testing at [facility], informed her patient has she will inform patient's other providers as well Medical Decision Making MDM Narrative Medical decision making narrative: CPR and resuscitative efforts discontinued at request of as patient is DNR DNI Discharge Plan Departure Patient Disposition: Clinical Impression: Cardiopulmonary arrest Discharge Date/Time: 03/25/20 14:45 Date/Time: 03/25/20 12:41
--- NOTE | 2020-03-25 14:00 | PC.NURSE ---
[facility] in route to obtain body. Patient meets criteria for potential tissue donation, ice applied to chest, abd, top of bilateral legs and in between legs per Far[facility] with [facility].
== END 2020-03-25 14:45 | disposition expired ==
PROVIDERS: Emergency Provider Emergency Medicine; PCP Internal Medicine
DX: I46.9 Cardiac arrest, cause unspecified (principal)
CPT/HCPCS: 99281